=== PATIENT | male | born 1945 | race Caucasian/White ===

== ENCOUNTER 2019-04-25 23:46 | Inpatient (IN) | payer MEDICARE, MEDICAID ==
[2019-04-26 01:11] LABS: ANION GAP 16.2; CHLORIDE,CL 88 mmol/L (101-111); SODIUM,NA 129 mmol/L (135-145)
[2019-04-26] MEDS ORDERED: Sodium Chloride 0.9% 1,000 ML IV ONE (01:16)
[2019-04-26] MEDS ORDERED: Potassium Chloride 10 MEQ in Premix Bag 1 BAG IV ONE (01:18)
--- NOTE | 2019-04-26 01:40 | EDM.PDOC ---
ED HPI GENERAL MEDICAL PROBLEM - General Chief Complaint: Respiratory Problem Stated Complaint: AMBULANCE Time Seen by Provider: 04/26/19 00:30 Source of Information: Reports: Patient, EMS, RN History Limitations: Reports: No Limitations - History of Present Illness INITIAL COMMENTS - FREE TEXT/NARRATIVE: ED via [facility] from [facility] with report of diarrhea for past 2 days. No reported fever or chills, feeling weaker tonight. Ambulance state patient has been incontinent , was reported by facility staff to be one who refuses assistance when it is available. Patient denied any vomiting, , has not had appetite past couple of days, symptoms started after room mate with diarrhea, Hx COPD states breathing no worse than usual. Is moaning, states he always does that. On arrival patient putrid smell clothing soiled from arms of shirts, stool all over hands , feces an front of pants and soaked through, large pools of foul liquid stool in under pickett, headache Pain Score (Numeric/FACES): 6 - Related Data Allergies Allergy/AdvReac Type Severity Reaction Status Date / Time No Known Allergies Allergy Verified 04/26/19 02:29 Home Meds: Home Meds Bimatoprost [LUMIGAN 0.01% Ophth Soln] 1 drop EYEBOTH DAILY 10/10/14 [History] Albuterol Sulfate [Albuterol Sulfate HFA] 1 puff INH 6XDAY PRN 11/27/14 [History ] predniSONE [predniSONE 5 MG/5 ML] 5 mg PO BIDMEALS 03/14/19 [History] Abiraterone Acetate [Zytiga] 1,000 mg PO DAILY 04/26/19 [History] Acetaminophen [Tylenol] 650 mg PO Q4HR PRN 04/26/19 [History] Albuterol [Proventil HFA] 2 puff INH QID PRN 04/26/19 [History] Aspirin [Ecotrin EC] 81 mg PO DAILY 04/26/19 [History] Bimatoprost [LUMIGAN 0.01% Ophth Soln] 2.5 ml EYEBOTH DAILY 04/26/19 [History] Brimonidine [Alphagan 0.2% Ophth Soln] 1 drop EYEBOTH BID 04/26/19 [History] Budesonide/Formoterol Fumarate [Symbicort 160-4.5 Mcg Inhaler] 2 puff INH BID [History] Budesonide/Formoterol Fumarate [Symbicort 160-4.5 Mcg Inhaler] 2 puff INH BID [History] Calcium Carb, Citrate/Vit D3 [Citracal + D ER] 2 tab PO DAILY 04/26/19 [History] Clopidogrel [Plavix] 75 mg PO DAILY 04/26/19 [History] Denosumab [Xgeva] 120 mg SUBCUT .[id number] 04/26/19 [History] Lifitegrast [Xiidra] 1 drop EYEBOTH BID 04/26/19 [History] Lisinopril [Zestril] 10 mg PO DAILY 04/26/19 [History] Lutein/Minerals/Vit A,C & E [I-Alexandra] 1 tab PO DAILY 04/26/19 [History] Magnesium Hydroxide [Milk of Magnesia] 30 ml PO DAILY PRN 04/26/19 [History] Naftifine HCl [Naftin] 1 applic TOP DAILY 04/26/19 [History] Tamsulosin HCl [Flomax] 0.4 mg PO DAILY 04/26/19 [History] Umeclidinium [place]lap [Incruse Ellipta*] 1 puff INH DAILY 04/26/19 [History] Umeclidinium [place]lap [Incruse Ellipta*] 1 puff INH DAILY 04/26/19 [History] Vit A/C/E AC/Znox/Cupric Oxide [Eye Vitamin-Minerals Tablet] 1 tab PO DAILY 07/11 [History] atorvaSTATin Calcium [Lipitor] 40 mg PO DAILY 04/26/19 [History] Past Medical History HEENT History: Reports: Hard of Hearing, Impaired Vision Cardiovascular History: Reports: Other (See Below) Other Cardiovascular History: ESSENTIAL HYPERTENSION. Silk Rodes Procedure on February 26. Respiratory History: Reports: COPD Other Gastrointestinal History: FOOD IMPACTION OF ESOPHAGUS Other Genitourinary History: URETHRAL STRICTURE Other Musculoskeletal History: DIASTASIS RECTI Other Psychiatric History: tobacco abuse, alcohol abuse Dermatologic History: Reports: Venous Stasis Dermatitis - Past Surgical History Other Male Surgeries/Procedures: Dilitation of urethra due to scar tissue. Social & Family History - Family History Family Medical History: Noncontributory - Tobacco Use Smoking Status *Q: Former Smoker Used Tobacco, but Quit: No - Caffeine Use Caffeine Use: Reports: Coffee, Soda - Recreational Drug Use Recreational Drug Use: No - Living Situation & Occupation Living situation: Reports: Single, Alone Occupation: Retired ED ROS GENERAL - Review of Systems Review Of Systems: Comprehensive ROS is negative, except as noted in HPI. ED EXAM, GENERAL - Physical Exam Exam: See Below Exam Limited By: No Limitations General Appearance: Alert, Mild Distress, Thin Eye Exam: Bilateral Eye: EOMI Ears: Normal External Exam Nose: Normal Inspection Throat/Mouth: Normal Inspection Head: Atraumatic, Normocephalic Respiratory/Chest: Decreased Breath Sounds, Wheezing, Prolonged Expiration Cardiovascular: Normal Peripheral Pulses, Regular Rate, Rhythm GI/Abdominal: Abnormal Bowel Sounds (hyperactive), Other (copious amount of liquid stool). No: Tender Extremities: Other (movements stiff) Neurological: Alert, Oriented Psychiatric: Flat Affect Skin Exam: Other (yoseph area bright red scalded appearance) Course - Vital Signs Last Recorded V/S: Last Vital Signs Temp 97.9 F 04/27/19 19:43 Pulse 101 H 04/27/19 19:43 Resp 20 04/27/19 19:43 BP 113/64 04/27/19 19:43 Pulse Ox 98 04/27/19 19:43 - Orders/Labs/Meds Orders: Medication Orders Acetaminophen (Tylenol) 650 mg PO Q4H PRN PRN Reason: Pain (Mild 1-3)/fever Last Admin: 04/28/19 00:31 Dose: 650 mg Admin: 04/27/19 19:46 Dose: 650 mg Admin: 04/27/19 03:58 Dose: 650 mg Admin: 04/26/19 18:15 Dose: 650 mg Albuterol/Ipratropium (Duoneb 3.0-0.5 Mg/3 Ml) 3 ml NEB Q4HRRT PRN PRN Reason: Shortness of Breath Aspirin (Halfprin) 81 mg PO DAILY COUNTS INCLUDE 234 BEDS AT THE [facility] Last Admin: 04/27/19 08:55 Dose: 81 mg Atorvastatin Calcium (Lipitor) 40 mg PO DAILY COUNTS INCLUDE 234 BEDS AT THE [facility] Last Admin: 04/27/19 08:55 Dose: 40 mg Clopidogrel Bisulfate (Plavix) 75 mg PO DAILY COUNTS INCLUDE 234 BEDS AT THE [facility] Last Admin: 04/27/19 08:55 Dose: 75 mg Heparin Sodium (Porcine) (Heparin Sodium) 5,000 units SUBCUT Q8HR COUNTS INCLUDE 234 BEDS AT THE [facility] Last Admin: 04/27/19 21:18 Dose: 5,000 units Admin: 04/27/19 14:53 Dose: 5,000 units Admin: 04/27/19 05:17 Dose: 5,000 units Admin: 04/26/19 22:02 Dose: 5,000 units Admin: 04/26/19 14:08 Dose: 5,000 units Admin: 04/26/19 06:15 Dose: 5,000 units Ceftriaxone Sodium 1 gm/ (Sodium Chloride) 50 mls @ 100 mls/hr IV Q24H COUNTS INCLUDE 234 BEDS AT THE [facility] Last Admin: 04/27/19 11:41 Dose: 100 mls/hr Admin: 04/26/19 11:38 Dose: 100 mls/hr Doxycycline Hyclate 100 mg/ (Sodium Chloride) 100 mls @ 100 mls/hr IV Q12HR COUNTS INCLUDE 234 BEDS AT THE [facility] Last Admin: 04/27/19 21:16 Dose: 100 mls/hr Admin: 04/27/19 08:39 Dose: 100 mls/hr Admin: 04/26/19 20:28 Dose: 100 mls/hr Admin: 04/26/19 12:41 Dose: 100 mls/hr Magnesium Hydroxide (Milk Of Magnesia) 30 ml PO DAILY PRN PRN Reason: Constipation Mometasone Furoate/Formoterol Fumar (Dulera 200-5 Mcg) 2 puff IH BIDRT COUNTS INCLUDE 234 BEDS AT THE [facility] Last Admin: 04/27/19 18:21 Dose: 2 puff Admin: 04/27/19 08:44 Dose: 2 puff Admin: 04/26/19 18:10 Dose: 2 puff Abiraterone [Zytiga] 250 Mg/ Tab Own Med 0 mg PO BEDTIME COUNTS INCLUDE 234 BEDS AT THE [facility] Last Admin: 04/27/19 21:16 Dose: 1,000 mg Bimatoprost [Lumigan ] 0.01% Ophth Own Med 1 drop EYEBOTH DAILY COUNTS INCLUDE 234 BEDS AT THE [facility] Last Admin: 04/27/19 08:47 Dose: 1 drop Brimonidine 0.2% (Ophth Own Med) 1 drop EYEBOTH BID COUNTS INCLUDE 234 BEDS AT THE [facility] Last Admin: 04/27/19 21:22 Dose: 1 drop Admin: 04/27/19 08:49 Dose: 1 drop Incruse Ellipta 62.5 (Mcg Inh *Own Med) 1 puff INH DAILY COUNTS INCLUDE 234 BEDS AT THE [facility] Last Admin: 04/27/19 08:53 Dose: 1 puff I-Alexandra Tabs Own (Med) 1 tab PO DAILY COUNTS INCLUDE 234 BEDS AT THE [facility] Last Admin: 04/27/19 08:52 Dose: 1 tab Nystatin (Nystatin Crm) 0 gm TOP BID COUNTS INCLUDE 234 BEDS AT THE [facility] Last Admin: 04/27/19 21:19 Dose: 1 applic Admin: 04/27/19 11:40 Dose: 1 applic Ondansetron HCl (Zofran) 4 mg IVPUSH Q6H PRN PRN Reason: Nausea/Vomiting Prednisolone (Orapred 15 Mg/5ml Soln) 5.1 mg PO BIDMEALS COUNTS INCLUDE 234 BEDS AT THE [facility] Last Admin: 04/27/19 18:20 Dose: 5.1 mg Admin: 04/27/19 08:45 Dose: 5.1 mg Tamsulosin HCl (Flomax) 0.4 mg PO DAILY COUNTS INCLUDE 234 BEDS AT THE [facility] Last Admin: 04/27/19 08:55 Dose: 0.4 mg Labs: Laboratory Tests 04/26/19 04/26/19 04/26/19 Range/Units 00:43 00:43 06:05 WBC 12.8 H 11.7 H (5.0-10.0) 10^3/uL RBC 3.63 L 3.35 L (4.6-6.2) 10^6/uL Hgb 12.2 L D 11.2 L (14.0-18.0) g/dL Hct 36.0 L 33.2 L (40.0-54.0) % MCV 99.2 99.1 (80-100) fL MCH 33.6 33.4 (27.0-34.0) pg MCHC 33.9 33.7 (33.0-35.0) g/dL Plt Count 202 179 (150-450) 10^3/uL Neut % (Auto) 81.5 H 83.5 H (42.2-75.2) % Lymph % (Auto) 12.4 L 10.2 L (20.5-50.1) % [place] % (Auto) 5.0 5.6 (2-8) % Eos % (Auto) 0.9 L 0.5 L (1.0-3.0) % Baso % (Auto) 0.2 0.2 (0.0-1.0) % Sodium 129 L (135-145) mmol/L Potassium 3.2 L (3.6-5.0) mmol/L Chloride 88 L (101-111) mmol/L Carbon Dioxide 28.0 (21.0-31.0) mmol/L Anion Gap 16.2 BUN 32 H (7-18) mg/dL Creatinine 0.9 (0.6-1.3) mg/dL Est Cr Clr Drug Dosing TNP Estimated GFR (MDRD) > 60 BUN/Creatinine Ratio 35.55 Glucose 128 H (74-105) mg/dL Calcium 7.1 L D (8.4-10.2) mg/dl Total Bilirubin 1.8 H (0.2-1.0) mg/dL AST 33 (10-42) IU/L ALT 23 (10-60) IU/L Alkaline Phosphatase 72 (42-121) IU/L Troponin I < 0.02 (0.00-0.02) ng/ml B-Natriuretic Peptide 30 (0-100) pg/ml Total Protein 6.8 (6.7-8.2) g/dl Albumin 3.2 (3.2-5.5) g/dl Globulin 3.6 Albumin/Globulin Ratio 0.89 Amylase 47 (28-100) U/L Lipase 21 L (22-51) U/L 04/26/19 Range/Units 06:05 WBC (5.0-10.0) 10^3/uL RBC (4.6-6.2) 10^6/uL Hgb (14.0-18.0) g/dL Hct (40.0-54.0) % MCV (80-100) fL MCH (27.0-34.0) pg MCHC (33.0-35.0) g/dL Plt Count (150-450) 10^3/uL Neut % (Auto) (42.2-75.2) % Lymph % (Auto) (20.5-50.1) % [place] % (Auto) (2-8) % Eos % (Auto) (1.0-3.0) % Baso % (Auto) (0.0-1.0) % Sodium 129 L (135-145) mmol/L Potassium 3.0 L (3.6-5.0) mmol/L Chloride 92 L (101-111) mmol/L Carbon Dioxide 27.0 (21.0-31.0) mmol/L Anion Gap 13.0 BUN 35 H (7-18) mg/dL Creatinine 0.8 (0.6-1.3) mg/dL Est Cr Clr Drug Dosing 90.20 Estimated GFR (MDRD) > 60 BUN/Creatinine Ratio Glucose 108 H (74-105) mg/dL Calcium 6.6 L (8.4-10.2) mg/dl Total Bilirubin (0.2-1.0) mg/dL AST (10-42) IU/L ALT (10-60) IU/L Alkaline Phosphatase (42-121) IU/L Troponin I (0.00-0.02) ng/ml B-Natriuretic Peptide (0-100) pg/ml Total Protein (6.7-8.2) g/dl Albumin (3.2-5.5) g/dl Globulin Albumin/Globulin Ratio Amylase (28-100) U/L Lipase (22-51) U/L Meds: Medications Generic Name Dose Route Start Last Admin Trade Name Freq PRN Reason Stop Dose Admin Acetaminophen 650 mg 04/26/19 01:56 04/28/19 00:31 Tylenol PO 650 mg Q4H PRN Administration Pain (Mild 1-3)/fever Albuterol/Ipratropium 3 ml 04/26/19 14:01 Duoneb 3.0-0.5 Mg/3 Ml NEB Q4HRRT PRN Shortness of Breath Aspirin 81 mg 04/27/19 09:00 04/27/19 08:55 Halfprin PO 81 mg DAILY TEMI Administration Atorvastatin Calcium 40 mg 04/27/19 09:00 04/27/19 08:55 Lipitor PO 40 mg DAILY TEMI Administration Clopidogrel Bisulfate 75 mg 04/27/19 09:00 04/27/19 08:55 Plavix PO 75 mg DAILY TEMI Administration Heparin Sodium (Porcine) 5,000 units 04/26/19 06:00 04/27/19 21:18 Heparin Sodium SUBCUT 5,000 units Q8HR TEMI Administration Ceftriaxone Sodium 1 gm/ 50 mls @ 100 mls/hr 04/26/19 11:00 04/27/19 11:41 Sodium Chloride IV 100 mls/hr Q24H TEMI Administration Doxycycline Hyclate 100 mg/ 100 mls @ 100 mls/hr 01/03/20 12:00 04/27/19 21: 16 Sodium Chloride IV 100 mls/hr Q12HR TEMI Administration Magnesium Hydroxide 30 ml 04/26/19 12:37 Milk Of Magnesia PO DAILY PRN Constipation Mometasone Furoate/Formoterol Fumar 2 puff 04/26/19 18:00 04/27/19 18:21 Dulera 200-5 Mcg IH 2 puff BIDRT TEMI Administration Abiraterone [Zytiga] 0 mg 04/27/19 21:00 04/27/19 21:16 250 Mg/ Tab Own PO 1,000 mg Med BEDTIME TEMI Administration Bimatoprost [Lumigan 1 drop 04/27/19 09:00 04/27/19 08:47 ] 0.01% Ophth Own EYEBOTH 1 drop Med DAILY TEMI Administration Brimonidine 0.2% 1 drop 04/27/19 09:00 04/27/19 21:22 Ophth Own Med EYEBOTH 1 drop BID TEMI Administration Incruse Ellipta 62.5 1 puff 04/27/19 09:00 04/27/19 08:53 Mcg Inh *Own Med INH 1 puff DAILY TEMI Administration I-Alexandra Tabs Own 1 tab 04/27/19 09:00 04/27/19 08:52 Med PO 1 tab DAILY TEMI Administration Nystatin 0 gm 04/27/19 11:15 04/27/19 21:19 Nystatin Crm TOP 1 applic BID TEMI Administration Ondansetron HCl 4 mg 04/26/19 01:56 Zofran IVPUSH Q6H PRN Nausea/Vomiting Prednisolone 5.1 mg 04/27/19 08:00 04/27/19 18:20 Orapred 15 Mg/5ml Soln PO 5.1 mg BIDMEALS TEMI Administration Tamsulosin HCl 0.4 mg 04/27/19 09:00 04/27/19 08:55 Flomax PO 0.4 mg DAILY TEMI Administration Discontinued Medications Generic Name Dose Route Start Last Admin Trade Name Freq PRN Reason Stop Dose Admin Sodium Chloride 1,000 mls @ 999 mls/hr 04/26/19 01:16 04/26/19 01:28 Normal Saline IV 04/26/19 02:16 999 mls/hr .BOLUS ONE Administration Potassium Chloride 10 meq/ 100 mls @ 100 mls/hr 04/26/19 01:18 04/26/19 01:33 Premix IV 04/26/19 02:17 100 mls/hr ONETIME ONE Administration Sodium Chloride 1,000 mls @ 125 mls/hr 04/26/19 02:00 04/26/19 09:41 Normal Saline IV 125 mls/hr ASDIRECTED TEMI Administration Levofloxacin/Dextrose 500 mg/ 100 mls @ 100 mls/hr 04/26/19 03:35 04/26/19 03 :42 Premix IV 04/26/19 04:34 100 mls/hr ONETIME ONE Administration Potassium Chloride/Sodium Chloride 1,000 mls @ 125 mls/hr 04/26/19 12:45 08/11 05:17 Normal Saline With 40 Meq Kcl IV 125 mls/hr ASDIRECTED TEMI Administration Potassium Chloride 20 meq 04/26/19 12:37 04/26/19 14:07 Klor-Con 10 PO 04/26/19 12:38 20 meq ONETIME ONE Administration - Re-Assessments/Exams Free Text/Narrative Re-Assessment/Exam: 04/26/19 01:58 Dr Phillips accepting patient for observation admission. 04/26/19 01:58 EMSS report family has some involvement with patient, Facility only basic cares. Patient at present state could benefit from higher level of care. Concern arises for vulnerable adult status due to state on arrival. Departure - Departure Time of Disposition: 01:34 Disposition: Refer to Observation Condition: Good Clinical Impression: Gastroenteritis, Hypokalemia, Hyponatremia - Discharge Information *PRESCRIPTION DRUG MONITORING PROGRAM REVIEWED*: No Sepsis Event Note - Evaluation Sepsis Screening Result: Possible Sepsis Risk - Focused Exam Date Exam was Performed: 04/28/19 Time Exam was Performed: 06:17
[2019-04-26] MEDS ORDERED: Ondansetron 4 MG/2 ML SDV IVPUSH PRN (01:56)
[2019-04-26] MEDS ORDERED: Sodium Chloride 0.9% 1,000 ML IV SCH (02:00)
[2019-04-26] MEDS ORDERED: Levofloxacin/Dextrose 5%-Water 500 MG in Premix Bag 1 BAG IV ONE (03:35)
[2019-04-26] MEDS: Heparin Sodium 5,000 Units/ML Vial SUBCUT SCH ×3 (06:15→22:02)
[2019-04-26 06:58] LABS: CHLORIDE,CL 92 mmol/L (101-111); SODIUM,NA 129 mmol/L (135-145)
[2019-04-26] MEDS: cefTRIAXone 1 GM in Sodium Chloride 0.9% 50 ML IV SCH (11:38)
--- NOTE | 2019-04-26 12:31 | PCM.HP ---
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 The patient resides at [facility]. For the past 3 days he has been having diarrhea. The diarrhea is said to be profuse to the point of the patient is not able to control it. Patient's dressings were covered with a excreta. He also was having associated nausea and vomiting. Did not have fever chills or rigors. Denied having abdominal pain. Patient presented to the emergency room and was weak. Was noted to be hyponatremic. Chest x-ray was obtained and it showed left lower lobe infiltrate suggestive of pneumonia. Does have occasional cough and feels short of breath. - Related Data Allergies/Adverse Reactions: Allergies Allergy/AdvReac Type Severity Reaction Status Date / Time No Known Allergies Allergy Verified 04/26/19 02:29 Home Medications: Home Meds Bimatoprost [LUMIGAN 0.01% Ophth Soln] 1 drop EYEBOTH DAILY 10/10/14 [History] Albuterol Sulfate [Albuterol Sulfate HFA] 1 puff INH 6XDAY PRN 11/27/14 [History ] predniSONE [predniSONE 5 MG/5 ML] 5 mg PO BIDMEALS 03/14/19 [History] Abiraterone Acetate [Zytiga] 1,000 mg PO DAILY 04/26/19 [History] Acetaminophen [Tylenol] 650 mg PO Q4HR PRN 04/26/19 [History] Albuterol [Proventil HFA] 2 puff INH QID PRN 04/26/19 [History] Aspirin [Ecotrin EC] 81 mg PO DAILY 04/26/19 [History] Brimonidine [Alphagan 0.2% Ophth Soln] 1 drop EYEBOTH BID 04/26/19 [History] Budesonide/Formoterol Fumarate [Symbicort 160-4.5 Mcg Inhaler] 2 puff INH BID [History] Calcium Carb, Citrate/Vit D3 [Citracal + D ER] 2 tab PO DAILY 04/26/19 [History] Clopidogrel [Plavix] 75 mg PO DAILY 04/26/19 [History] Denosumab [Xgeva] 120 mg SUBCUT .[id number] 04/26/19 [History] Lifitegrast [Xiidra] 1 drop EYEBOTH BID 04/26/19 [History] Lisinopril [Zestril] 10 mg PO DAILY 04/26/19 [History] Magnesium Hydroxide [Milk of Magnesia] 30 ml PO DAILY PRN 04/26/19 [History] Naftifine HCl [Naftin] 1 applic TOP DAILY 04/26/19 [History] Tamsulosin HCl [Flomax] 0.4 mg PO DAILY 04/26/19 [History] Umeclidinium [place] [Incruse Ellipta*] 1 puff INH DAILY 04/26/19 [History] Vit A/C/E AC/Znox/Cupric Oxide [Eye Vitamin-Minerals Tablet] 1 tab PO DAILY 07/11 [History] atorvaSTATin Calcium [Lipitor] 40 mg PO DAILY 04/26/19 [History] Past Medical History HEENT History: Reports: Hard of Hearing, Impaired Vision, Macular Degeneration Cardiovascular History: Reports: Other (See Below) Other Cardiovascular History: ESSENTIAL HYPERTENSION. Silk Rodes Procedure on February 26. Respiratory History: Reports: COPD Other Gastrointestinal History: FOOD IMPACTION OF ESOPHAGUS Other Genitourinary History: URETHRAL STRICTURE Other Musculoskeletal History: DIASTASIS RECTI Other Psychiatric History: tobacco abuse, alcohol abuse Dermatologic History: Reports: Venous Stasis Dermatitis - Past Surgical History Other HEENT Surgeries/Procedures: blind in left eye Other Male Surgeries/Procedures: Dilitation of urethra due to scar tissue. Social & Family History - Family History Family Medical History: Noncontributory - Tobacco Use Smoking Status *Q: Former Smoker Years of Tobacco use: 60 Packs/Tins Daily: 2 Used Tobacco, but Quit: Yes Month/Year Tobacco Last Used: October 06, 1999 Second Hand Smoke Exposure: No - Caffeine Use Caffeine Use: Reports: None - Recreational Drug Use Recreational Drug Use: No - Living Situation & Occupation Living situation: Reports: Single, Alone Occupation: Retired H&P Review of Systems - Review of Systems: Review Of Systems: See Below General: Reports: Chills, Malaise, Weakness HEENT: Reports: Sinus Congestion Pulmonary: Reports: Shortness of Breath, Cough Cardiovascular: Reports: No Symptoms Gastrointestinal: Reports: Diarrhea, Nausea, Vomiting Musculoskeletal: Reports: No Symptoms Skin: Reports: No Symptoms Psychiatric: Reports: No Symptoms Neurological: Reports: No Symptoms Exam - Exam Exam: See Below - Vital Signs Vital Signs: Last Vital Signs Temp 36.9 C 04/26/19 11:46 Pulse 96 04/26/19 11:46 Resp 20 04/26/19 11:46 BP 106/44 L 04/26/19 11:46 Pulse Ox 98 04/26/19 11:46 Weight: 87.543 kg - Exam Quality Assessment: Supplemental Oxygen General: Alert, Oriented Neck: Supple, Trachea Midline, 2 Lungs: Decreased Breath Sounds GI/Abdominal Exam: Normal Bowel Sounds, Soft, Non-Tender, No Organomegaly, No Distention, No Abnormal Bruit, No Mass, Pelvis Stable Extremities: Normal Inspection, Non-Tender Skin: Dry - Patient Data Lab Results Last 24 hrs: Laboratory Results - last 24 hr 04/26/19 04/26/19 04/26/19 Range/Units 00:43 00:43 06:05 WBC 12.8 H 11.7 H (5.0-10.0) 10^3/uL RBC 3.63 L 3.35 L (4.6-6.2) 10^6/uL Hgb 12.2 L D 11.2 L (14.0-18.0) g/dL Hct 36.0 L 33.2 L (40.0-54.0) % MCV 99.2 99.1 (80-100) fL MCH 33.6 33.4 (27.0-34.0) pg MCHC 33.9 33.7 (33.0-35.0) g/dL Plt Count 202 179 (150-450) 10^3/uL Neut % (Auto) 81.5 H 83.5 H (42.2-75.2) % Lymph % (Auto) 12.4 L 10.2 L (20.5-50.1) % [place] % (Auto) 5.0 5.6 (2-8) % Eos % (Auto) 0.9 L 0.5 L (1.0-3.0) % Baso % (Auto) 0.2 0.2 (0.0-1.0) % Sodium 129 L (135-145) mmol/L Potassium 3.2 L (3.6-5.0) mmol/L Chloride 88 L (101-111) mmol/L Carbon Dioxide 28.0 (21.0-31.0) mmol/L Anion Gap 16.2 BUN 32 H (7-18) mg/dL Creatinine 0.9 (0.6-1.3) mg/dL Est Cr Clr Drug Dosing TNP Estimated GFR (MDRD) > 60 BUN/Creatinine Ratio 35.55 Glucose 128 H (74-105) mg/dL Calcium 7.1 L D (8.4-10.2) mg/dl Total Bilirubin 1.8 H (0.2-1.0) mg/dL AST 33 (10-42) IU/L ALT 23 (10-60) IU/L Alkaline Phosphatase 72 (42-121) IU/L Troponin I < 0.02 (0.00-0.02) ng/ml B-Natriuretic Peptide 30 (0-100) pg/ml Total Protein 6.8 (6.7-8.2) g/dl Albumin 3.2 (3.2-5.5) g/dl Globulin 3.6 Albumin/Globulin Ratio 0.89 Amylase 47 (28-100) U/L Lipase 21 L (22-51) U/L 04/26/19 Range/Units 06:05 WBC (5.0-10.0) 10^3/uL RBC (4.6-6.2) 10^6/uL Hgb (14.0-18.0) g/dL Hct (40.0-54.0) % MCV (80-100) fL MCH (27.0-34.0) pg MCHC (33.0-35.0) g/dL Plt Count (150-450) 10^3/uL Neut % (Auto) (42.2-75.2) % Lymph % (Auto) (20.5-50.1) % [place] % (Auto) (2-8) % Eos % (Auto) (1.0-3.0) % Baso % (Auto) (0.0-1.0) % Sodium 129 L (135-145) mmol/L Potassium 3.0 L (3.6-5.0) mmol/L Chloride 92 L (101-111) mmol/L Carbon Dioxide 27.0 (21.0-31.0) mmol/L Anion Gap 13.0 BUN 35 H (7-18) mg/dL Creatinine 0.8 (0.6-1.3) mg/dL Est Cr Clr Drug Dosing 90.20 Estimated GFR (MDRD) > 60 BUN/Creatinine Ratio Glucose 108 H (74-105) mg/dL Calcium 6.6 L (8.4-10.2) mg/dl Total Bilirubin (0.2-1.0) mg/dL AST (10-42) IU/L ALT (10-60) IU/L Alkaline Phosphatase (42-121) IU/L Troponin I (0.00-0.02) ng/ml B-Natriuretic Peptide (0-100) pg/ml Total Protein (6.7-8.2) g/dl Albumin (3.2-5.5) g/dl Globulin Albumin/Globulin Ratio Amylase (28-100) U/L Lipase (22-51) U/L Result Diagrams: 04/26/19 06:05 04/26/19 06:05 Alvaro Results Last 24 hrs: Microbiology 04/26/19 00:31 Stool Occult Blood (ALVARO) - Final Stool / Feces Problem List Initiated/Reviewed/Updated: Yes Orders Last 24hrs: Active Orders 24 hr Category Date Time Status Admission Diagnosis [ADT] Urgent ADT 04/26/19 01:53 Ordered Patient Status [ADT] Routine ADT 04/26/19 11:55 Active Intake and Output [RC] QSHIFT Care 04/26/19 01:58 Active Oxygen Therapy [RC] PRN Care 04/26/19 01:56 Active Up ad Minnie [RC] ASDIRECTED Care 04/26/19 01:56 Active VTE/DVT Education [RC] PER UNIT ROUTINE Care 04/26/19 01:56 Active Vital Signs [RC] 00,04,08,12,16,20 Care 04/26/19 01:56 Active OT Evaluation and Treatment [CONS] Routine Cons 04/26/19 11:38 Active PT Evaluation and Treatment [CONS] Routine Cons 04/26/19 11:38 Active Regular Diet [DIET] Diet 04/26/19 Breakfast Active CLOSTRIDIUM DIFFICILE TOX RFLX [MREF] Stat Lab 04/26/19 00:30 Received CULTURE BLOOD [BC] Stat Lab 04/26/19 00:43 Received CULTURE SPUTUM + SMEAR [RM] Routine Lab 04/26/19 12:23 Ordered CULTURE STOOL [RM] Stat Lab 04/26/19 00:30 Received Acetaminophen [Tylenol] Med 04/26/19 01:56 Active 650 mg PO Q4H PRN Doxycycline [Vibramycin] 100 mg Med 04/26/19 12:00 Active Sodium Chloride 0.9% [Normal Saline] 100 ml IV Q12HR Heparin Sodium Med 04/26/19 06:00 Active 5,000 units SUBCUT Q8HR Ondansetron [Zofran] Med 04/26/19 01:56 Active 4 mg IVPUSH Q6H PRN Sodium Chloride 0.9% [Normal Saline] 1,000 ml Med 04/26/19 02:00 Active IV ASDIRECTED cefTRIAXone [Rocephin] 1 gm Med 04/26/19 11:00 Active Sodium Chloride 0.9% [Normal Saline] 50 ml IV Q24H Isolation [COMM] Stat Oth 04/26/19 01:13 Ordered Resuscitation Status Routine Resus Stat 04/26/19 01:56 Ordered Medication Orders Acetaminophen (Tylenol) 650 mg PO Q4H PRN PRN Reason: Pain (Mild 1-3)/fever Heparin Sodium (Porcine) (Heparin Sodium) 5,000 units SUBCUT Q8HR [facility] Last Admin: 04/26/19 06:15 Dose: 5,000 units Sodium Chloride (Normal Saline) 1,000 mls @ 125 mls/hr IV ASDIRECTED [facility] Last Admin: 04/26/19 09:41 Dose: 125 mls/hr Ceftriaxone Sodium 1 gm/ (Sodium Chloride) 50 mls @ 100 mls/hr IV Q24H [facility] Last Admin: 04/26/19 11:38 Dose: 100 mls/hr Doxycycline Hyclate 100 mg/ (Sodium Chloride) 100 mls @ 100 mls/hr IV Q12HR [facility] Ondansetron HCl (Zofran) 4 mg IVPUSH Q6H PRN PRN Reason: Nausea/Vomiting Assessment/Plan Comment:: #.Probable acute gastroenteritis The patient is having profuse nausea vomiting and diarrhea Diarrhea has been so profuse that the patient's dressings were covered with excreta #. Probable left lower lobe pneumonia Patient admits to having shortness of breath Only has mild cough Chest x-ray showed left lower lobe infiltrate #. Metastatic prostate cancer The patient follows with Dr. Roman #. COPD He is an active smoker Does have diminished air entry bilaterally #. Hypertension Monitor vital signs #. Tobacco use disorder Counseling provided #. Peripheral artery disease Patient follows with vascular #. Benign prostatic hypertrophy Place patient on tamsulosin #. T artery stenosis Patient has had previous left, carotid artery stent placement Plan: Admit patient to medical floor Send sputum for Gram stain and cultures Empiric antibiotics with intravenous ceftriaxone Intravenous doxycycline Intravenous hydration because of diarrhea We'll start patient on Imodium tablet Provide nicotine patch when necessary Nebulized bronchodilators.
[2019-04-26] MEDS ORDERED: Magnesium Hydroxide 400 MG/5 ML Susp 30 ML Cup PO PRN (12:37)
[2019-04-26] MEDS ORDERED: Albuterol 6.7 GM Inhaler INH PRN (12:37)
[2019-04-26] MEDS ORDERED: Potassium Chloride 10 MEQ Tab.ER PO ONE (12:37)
[2019-04-26] MEDS: Doxycycline 100 MG in Sodium Chloride 0.9% 100 ML IV SCH ×2 (12:41→20:28)
[2019-04-26] MEDS: Formoterol/Mometasone 200-5 MCG 8.8 GM Inhaler IH SCH (18:10)
[2019-04-26] MEDS: Acetaminophen 325 MG Tab PO PRN (18:15)
[2019-04-26] MEDS: Sodium Chloride 0.9% with KCl 1,000 ML IV SCH (19:27)
[2019-04-26] MEDS ORDERED: Non-Formulary Medication 1 Each (Budesonide/Formoterol Fumarate 2 PUFF) INH SCH (21:00)
[2019-04-27] MEDS: Acetaminophen 325 MG Tab PO PRN ×2 (03:58→19:46)
[2019-04-27] MEDS: Sodium Chloride 0.9% with KCl 1,000 ML IV SCH (05:17)
[2019-04-27] MEDS: Heparin Sodium 5,000 Units/ML Vial SUBCUT SCH ×3 (05:17→21:18)
[2019-04-27 07:05] LABS: ANION GAP 13.8; CHLORIDE,CL 101 mmol/L (101-111); SODIUM,NA 134 mmol/L (135-145)
[2019-04-27] MEDS: Doxycycline 100 MG in Sodium Chloride 0.9% 100 ML IV SCH ×2 (08:39→21:16)
[2019-04-27] MEDS: Formoterol/Mometasone 200-5 MCG 8.8 GM Inhaler IH SCH ×2 (08:44→18:21)
[2019-04-27] MEDS: prednisoLONE Soln 15 MG/5 ML UD Cup PO SCH ×2 (08:45→18:20)
[2019-04-27] MEDS: BIMATOPROST 0.01% EYEBOTH SCH (08:47)
[2019-04-27] MEDS: Brimonidine 0.2% Ophth **OWN MED EYEBOTH SCH ×2 (08:49→21:22)
[2019-04-27] MEDS: I VITE PO SCH (08:52)
[2019-04-27] MEDS: INCRUSE ELLIPTA 62.5 MCG INH SCH (08:53)
[2019-04-27] MEDS: Clopidogrel 75 MG Tab PO SCH (08:55)
[2019-04-27] MEDS: Tamsulosin 0.4 MG Cap.ER PO SCH (08:55)
[2019-04-27] MEDS: Aspirin 81 MG Tab.EC PO SCH (08:55)
[2019-04-27] MEDS: atorvaSTATin 20 MG Tab PO SCH (08:55)
--- NOTE | 2019-04-27 10:18 | PCM.PN ---
- General Info Date of Service: 04/27/19 Subjective Update: Patient was admitted with gastroenteritis and left lower lobe pneumonia Today, Offers no new complaints Diarrhea has improved Occasional cough. Sometimes productive. Continues to have shortness of breath. Still needing supplemental oxygen - Review of Systems General: Reports: Weakness, Fatigue Pulmonary: Reports: Shortness of Breath, Cough Cardiovascular: Reports: No Symptoms Gastrointestinal: Reports: No Symptoms Skin: Reports: No Symptoms - Patient Data Vitals - Most Recent: Last Vital Signs Temp 37.0 C 04/27/19 07:59 Pulse 86 04/27/19 07:59 Resp 20 04/27/19 07:59 BP 118/47 L 04/27/19 07:59 Pulse Ox 98 04/27/19 07:59 Weight - Most Recent: 87.543 kg I&O - Last 24 Hours: Intake & Output 04/26/19 04/27/19 04/27/19 22:59 06:59 14:59 Output Total 200 Balance -200 Lab Results Last 24 Hours: Laboratory Results - last 24 hr 04/27/19 Range/Units 05:40 Sodium 134 L (135-145) mmol/L Potassium 3.8 (3.6-5.0) mmol/L Chloride 101 (101-111) mmol/L Carbon Dioxide 23.0 (21.0-31.0) mmol/L Anion Gap 13.8 BUN 31 H (7-18) mg/dL Creatinine 0.5 L (0.6-1.3) mg/dL Est Cr Clr Drug Dosing 144.33 mL/min Estimated GFR (MDRD) > 60 Glucose 96 (74-105) mg/dL Calcium 6.3 L (8.4-10.2) mg/dl Alvaro Results Last 24 Hours: Microbiology 04/26/19 00:30 Clostridioides difficile (PCR) - Final Stool / Feces 04/26/19 00:30 Stool Culture - Preliminary Stool / Feces NORMAL ENTERIC DELLA 1 DAY 04/26/19 00:43 Aerobic Blood Culture - Preliminary Blood NO GROWTH AFTER 1 DAY Anaerobic Blood Culture - Preliminary NO GROWTH AFTER 1 DAY Med Orders - Current: Current Medications Acetaminophen (Tylenol) 650 mg PO Q4H PRN PRN Reason: Pain (Mild 1-3)/fever Last Admin: 04/27/19 03:58 Dose: 650 mg Albuterol/Ipratropium (Duoneb 3.0-0.5 Mg/3 Ml) 3 ml NEB Q4HRRT PRN PRN Reason: Shortness of Breath Aspirin (Halfprin) 81 mg PO DAILY [facility] Last Admin: 04/27/19 08:55 Dose: 81 mg Atorvastatin Calcium (Lipitor) 40 mg PO DAILY [facility] Last Admin: 04/27/19 08:55 Dose: 40 mg Clopidogrel Bisulfate (Plavix) 75 mg PO DAILY [facility] Last Admin: 04/27/19 08:55 Dose: 75 mg Heparin Sodium (Porcine) (Heparin Sodium) 5,000 units SUBCUT Q8HR [facility] Last Admin: 04/27/19 05:17 Dose: 5,000 units Ceftriaxone Sodium 1 gm/ (Sodium Chloride) 50 mls @ 100 mls/hr IV Q24H [facility] Last Admin: 04/26/19 11:38 Dose: 100 mls/hr Doxycycline Hyclate 100 mg/ (Sodium Chloride) 100 mls @ 100 mls/hr IV Q12HR [facility] Last Admin: 04/27/19 08:39 Dose: 100 mls/hr Magnesium Hydroxide (Milk Of Magnesia) 30 ml PO DAILY PRN PRN Reason: Constipation Mometasone Furoate/Formoterol Fumar (Dulera 200-5 Mcg) 2 puff IH BIDRT [facility] Last Admin: 04/27/19 08:44 Dose: 2 puff Abiraterone [Zytiga] 250 Mg/ Tab Own Med 0 mg PO BEDTIME [facility] Bimatoprost [Lumigan ] 0.01% Ophth Own Med 1 drop EYEBOTH DAILY [facility] Last Admin: 04/27/19 08:47 Dose: 1 drop Brimonidine 0.2% (Ophth Own Med) 1 drop EYEBOTH BID [facility] Last Admin: 04/27/19 08:49 Dose: 1 drop Incruse Ellipta 62.5 (Mcg Inh *Own Med) 1 puff INH DAILY [facility] Last Admin: 04/27/19 08:53 Dose: 1 puff I-Alexandra Tabs Own (Med) 1 tab PO DAILY [facility] Last Admin: 04/27/19 08:52 Dose: 1 tab Ondansetron HCl (Zofran) 4 mg IVPUSH Q6H PRN PRN Reason: Nausea/Vomiting Prednisolone (Orapred 15 Mg/5ml Soln) 5.1 mg PO BIDMEALS [facility] Last Admin: 04/27/19 08:45 Dose: 5.1 mg Tamsulosin HCl (Flomax) 0.4 mg PO DAILY [facility] Last Admin: 04/27/19 08:55 Dose: 0.4 mg Discontinued Medications Sodium Chloride (Normal Saline) 1,000 mls @ 999 mls/hr IV .BOLUS ONE Stop: 04/26/19 02:16 Last Admin: 04/26/19 01:28 Dose: 999 mls/hr Potassium Chloride 10 meq/ (Premix) 100 mls @ 100 mls/hr IV ONETIME ONE Stop: 04/26/19 02:17 Last Admin: 04/26/19 01:33 Dose: 100 mls/hr Sodium Chloride (Normal Saline) 1,000 mls @ 125 mls/hr IV ASDIRECTED [facility] Last Admin: 04/26/19 09:41 Dose: 125 mls/hr Levofloxacin/Dextrose 500 mg/ (Premix) 100 mls @ 100 mls/hr IV ONETIME ONE Stop: 04/26/19 04:34 Last Admin: 04/26/19 03:42 Dose: 100 mls/hr Potassium Chloride/Sodium Chloride (Normal Saline With 40 Meq Kcl) 1,000 mls @ 125 mls/hr IV ASDIRECTED [facility] Last Admin: 04/27/19 05:17 Dose: 125 mls/hr Potassium Chloride (Klor-Con 10) 20 meq PO ONETIME ONE Stop: 04/26/19 12:38 Last Admin: 04/26/19 14:07 Dose: 20 meq - Exam General: Alert, Oriented HEENT: Pupils Equal, Pupils Reactive, EOMI, Mucous Membr. Moist/[place] Neck: Supple Lungs: Clear to Auscultation, Normal Respiratory Effort Cardiovascular: Regular Rate, Regular Rhythm GI/Abdominal Exam: Normal Bowel Sounds, Soft, Non-Tender, No Organomegaly, No Distention, No Abnormal Bruit, No Mass, Pelvis Stable Extremities: Normal Inspection, Normal Range of Motion, Non-Tender, No Pedal Edema, Normal Capillary Refill Sepsis Event Note - Evaluation Sepsis Screening Result: No Definite Risk - Focused Exam Vital Signs: Vital Signs Temp Pulse Resp BP Pulse Ox Pulse Ox 04/27/19 07:59 37.0 C 86 20 118/47 L 98 04/27/19 04:00 94 L 04/26/19 23:36 36.6 C 100 17 112/52 L 96 Date Exam was Performed: 04/27/19 Time Exam was Performed: 10:13 - Problem List Review Problem List Initiated/Reviewed/Updated: Yes - My Orders Last 24 Hours: My Active Orders 04/26/19 11:00 cefTRIAXone [Rocephin] 1 gm Sodium Chloride 0.9% [Normal Saline] 50 ml IV Q24H 04/26/19 11:38 OT Evaluation and Treatment [CONS] Routine PT Evaluation and Treatment [CONS] Routine 04/26/19 11:55 Patient Status [ADT] Routine 04/26/19 12:00 Doxycycline [Vibramycin] 100 mg Sodium Chloride 0.9% [Normal Saline] 100 ml IV Q12HR 04/26/19 12:37 Magnesium Hydroxide [Milk of Magnesia] 30 ml PO DAILY PRN 04/26/19 14:01 RT Aerosol Therapy [RC] ASDIRECTED Albuterol/Ipratropium [DuoNeb 3.0-0.5 MG/3 ML] 3 ml NEB Q4HRRT PRN 04/26/19 18:00 Mometasone/Formoterol [Dulera 200-5 MCG] 2 puff IH BIDRT 04/27/19 08:00 prednisoLONE [OraPred 15 MG/5ML Soln] 5.1 mg PO BIDMEALS 04/27/19 09:00 Aspirin [Halfprin] 81 mg PO DAILY Bimatoprost [LUMIGAN 0.01% Ophth Soln] 1 drop EYEBOTH DAILY Brimonidine [Alphagan 0.2% Ophth Soln] 1 drop EYEBOTH BID Clopidogrel [Plavix] 75 mg PO DAILY Tamsulosin [Flomax] 0.4 mg PO DAILY Umeclidinium [place] [Incruse Ellipta*] 1 puff INH DAILY Vit A/C/E AC/Znox/Cupric Oxide [Eye Vitamin-Minerals Tablet] 1 tab PO DAILY atorvaSTATin [Lipitor] 40 mg PO DAILY 04/27/19 09:16 CULTURE SPUTUM + SMEAR [RM] Routine 04/27/19 21:00 Abiraterone Acetate [Zytiga] 0 mg PO BEDTIME 04/28/19 06:00 HEPATIC FUNCTION PANEL,HFP [CHEM] Routine - Plan Plan:: #.Probable acute gastroenteritis The patient was having profuse nausea vomiting and diarrhea Improved #. Probable left lower lobe pneumonia Patient admits to having shortness of breath Only has mild cough Chest x-ray showed left lower lobe infiltrate #. Metastatic prostate cancer The patient follows with Dr. Roman #. COPD He is an active smoker Has been having shortness of breath #. Hypertension Reasonable control #. Tobacco use disorder Counseling provided #. Peripheral artery disease Patient follows with vascular #. Benign prostatic hypertrophy Place patient on tamsulosin #. Carotid artery stenosis Patient has had previous left, carotid artery stent placement Plan: Patient is to having some shortness of breath. He is on supplemental oxygen We'll try to wean this off as tolerated Stool for C. difficile toxin came back negative Discontinue isolation discontinue intravenous fluids Send sample for brain natruretic peptide Physical and occupational therapy Send sample for repeat liver function test Obtain complete blood count and basic metabolic panel
[2019-04-27] MEDS: Nystatin Crm 15 GM Tube TOP SCH ×2 (11:40→21:19)
[2019-04-27] MEDS: cefTRIAXone 1 GM in Sodium Chloride 0.9% 50 ML IV SCH (11:41)
[2019-04-27] MEDS: ABIRATERONE PO SCH (21:16)
[2019-04-28] MEDS: Acetaminophen 325 MG Tab PO PRN ×3 (00:31→20:48)
[2019-04-28] MEDS: Heparin Sodium 5,000 Units/ML Vial SUBCUT SCH (06:37)
[2019-04-28] MEDS ORDERED: Calcium Gluconate 10% 1 GM/10 ML SDV IVPUSH ONE (08:20)
[2019-04-28] MEDS ORDERED: Calcium Gluconate 2 GM in Sodium Chloride 0.9% 100 ML IV ONE (08:45)
--- NOTE | 2019-04-28 08:55 | PCM.PN ---
- General Info Date of Service: 04/28/19 - Review of Systems General: Reports: Weakness, Fatigue Pulmonary: Reports: No Symptoms, Shortness of Breath, Cough, Sputum Cardiovascular: Reports: No Symptoms Gastrointestinal: Reports: No Symptoms - Patient Data Vitals - Most Recent: Last Vital Signs Temp 36.2 C 04/28/19 08:08 Pulse 91 04/28/19 08:08 Resp 20 04/28/19 08:08 BP 139/56 L 04/28/19 08:08 Pulse Ox 96 04/28/19 08:08 Weight - Most Recent: 87.543 kg I&O - Last 24 Hours: Intake & Output 04/27/19 04/28/19 04/28/19 22:59 06:59 14:59 Intake Total 510 567 Balance 510 567 Lab Results Last 24 Hours: Laboratory Results - last 24 hr 04/28/19 Range/Units 06:15 Total Bilirubin 0.8 (0.2-1.0) mg/dL Direct Bilirubin 0.4 H (0.0-0.2) mg/dL Indirect Bilirubin 0.4 AST 41 (10-42) IU/L ALT 31 (10-60) IU/L Alkaline Phosphatase 57 (42-121) IU/L Total Protein 6.0 L (6.7-8.2) g/dl Albumin 2.7 L (3.2-5.5) g/dl Globulin 3.3 Albumin/Globulin Ratio 0.82 Alvaro Results Last 24 Hours: Microbiology 04/26/19 00:30 Clostridioides difficile (PCR) - Final Stool / Feces Clostridioides difficile Toxin Assay - Final 04/26/19 00:30 Stool Culture - Preliminary Stool / Feces NORMAL ENTERIC DELLA 2 DAYS 04/26/19 00:43 Aerobic Blood Culture - Preliminary Blood NO GROWTH AFTER 2 DAYS Anaerobic Blood Culture - Preliminary NO GROWTH AFTER 2 DAYS 04/27/19 09:16 Gram Stain - Final Sputum - Expectorated Med Orders - Current: Current Medications Acetaminophen (Tylenol) 650 mg PO Q4H PRN PRN Reason: Pain (Mild 1-3)/fever Last Admin: 04/28/19 00:31 Dose: 650 mg Albuterol/Ipratropium (Duoneb 3.0-0.5 Mg/3 Ml) 3 ml NEB Q4HRRT PRN PRN Reason: Shortness of Breath Aspirin (Halfprin) 81 mg PO DAILY [facility] Last Admin: 04/27/19 08:55 Dose: 81 mg Atorvastatin Calcium (Lipitor) 40 mg PO DAILY [facility] Last Admin: 04/27/19 08:55 Dose: 40 mg Clopidogrel Bisulfate (Plavix) 75 mg PO DAILY [facility] Last Admin: 04/27/19 08:55 Dose: 75 mg Ceftriaxone Sodium 1 gm/ (Sodium Chloride) 50 mls @ 100 mls/hr IV Q24H [facility] Last Admin: 04/27/19 11:41 Dose: 100 mls/hr Doxycycline Hyclate 100 mg/ (Sodium Chloride) 100 mls @ 100 mls/hr IV Q12HR [facility] Last Admin: 04/27/19 21:16 Dose: 100 mls/hr Calcium Gluconate 2 gm/ Sodium (Chloride) 120 mls @ 60 mls/hr IV ONETIME ONE Stop: 04/28/19 10:44 Magnesium Hydroxide (Milk Of Magnesia) 30 ml PO DAILY PRN PRN Reason: Constipation Mometasone Furoate/Formoterol Fumar (Dulera 200-5 Mcg) 2 puff IH BIDRT [facility] Last Admin: 04/27/19 18:21 Dose: 2 puff Abiraterone [Zytiga] 250 Mg/ Tab Own Med 0 mg PO BEDTIME [facility] Last Admin: 04/27/19 21:16 Dose: 1,000 mg Bimatoprost [Lumigan ] 0.01% Ophth Own Med 1 drop EYEBOTH DAILY [facility] Last Admin: 04/27/19 08:47 Dose: 1 drop Brimonidine 0.2% (Ophth Own Med) 1 drop EYEBOTH BID [facility] Last Admin: 04/27/19 21:22 Dose: 1 drop Incruse Ellipta 62.5 (Mcg Inh *Own Med) 1 puff INH DAILY [facility] Last Admin: 04/27/19 08:53 Dose: 1 puff I-Alexandra Tabs Own (Med) 1 tab PO DAILY [facility] Last Admin: 04/27/19 08:52 Dose: 1 tab Nystatin (Nystatin Crm) 0 gm TOP BID [facility] Last Admin: 04/27/19 21:19 Dose: 1 applic Ondansetron HCl (Zofran) 4 mg IVPUSH Q6H PRN PRN Reason: Nausea/Vomiting Prednisolone (Orapred 15 Mg/5ml Soln) 5.1 mg PO BIDMEALS [facility] Last Admin: 04/27/19 18:20 Dose: 5.1 mg Tamsulosin HCl (Flomax) 0.4 mg PO DAILY [facility] Last Admin: 04/27/19 08:55 Dose: 0.4 mg Discontinued Medications Calcium Gluconate (Calcium Gluconate) 2 gm IVPUSH ONETIME ONE Stop: 04/28/19 08:21 Heparin Sodium (Porcine) (Heparin Sodium) 5,000 units SUBCUT Q8HR [facility] Last Admin: 04/28/19 06:37 Dose: Not Given Sodium Chloride (Normal Saline) 1,000 mls @ 999 mls/hr IV .BOLUS ONE Stop: 04/26/19 02:16 Last Admin: 04/26/19 01:28 Dose: 999 mls/hr Potassium Chloride 10 meq/ (Premix) 100 mls @ 100 mls/hr IV ONETIME ONE Stop: 04/26/19 02:17 Last Admin: 04/26/19 01:33 Dose: 100 mls/hr Sodium Chloride (Normal Saline) 1,000 mls @ 125 mls/hr IV ASDIRECTED [facility] Last Admin: 04/26/19 09:41 Dose: 125 mls/hr Levofloxacin/Dextrose 500 mg/ (Premix) 100 mls @ 100 mls/hr IV ONETIME ONE Stop: 04/26/19 04:34 Last Admin: 04/26/19 03:42 Dose: 100 mls/hr Potassium Chloride/Sodium Chloride (Normal Saline With 40 Meq Kcl) 1,000 [facility]ls [facility] Admin: 04/27/19 05:17 Dose: 125 mls/hr Potassium Chloride (Klor-Con 10) 20 meq PO ONETIME ONE Stop: 04/26/19 12:38 Last Admin: 04/26/19 14:07 Dose: 20 meq - Exam General: Alert, Oriented, Cooperative, No Acute Distress Neck: Supple, Trachea Midline Lungs: Decreased Breath Sounds, Rhonchi, Wheezing GI/Abdominal Exam: Normal Bowel Sounds, Soft, Non-Tender, No Organomegaly, No Distention, No Abnormal Bruit, No Mass, Pelvis Stable Back Exam: Normal Inspection, Full Range of Motion Skin: Warm, Dry Sepsis Event Note - Evaluation Sepsis Screening Result: Possible Sepsis Risk - Focused Exam Vital Signs: Vital Signs Temp Pulse Resp BP Pulse Ox Pulse Ox 04/28/19 08:08 36.2 C 91 20 139/56 L 96 04/28/19 04:00 97 Date Exam was Performed: 04/28/19 Time Exam was Performed: 08:51 - Problem List Review Problem List Initiated/Reviewed/Updated: Yes - My Orders Last 24 Hours: My Active Orders 04/27/19 08:00 prednisoLONE [OraPred 15 MG/5ML Soln] 5.1 mg PO BIDMEALS 04/27/19 09:00 Aspirin [Halfprin] 81 mg PO DAILY Bimatoprost [LUMIGAN 0.01% Ophth Soln] 1 drop EYEBOTH DAILY Brimonidine [Alphagan 0.2% Ophth Soln] 1 drop EYEBOTH BID Clopidogrel [Plavix] 75 mg PO DAILY Tamsulosin [Flomax] 0.4 mg PO DAILY Umeclidinium [place] [Incruse Ellipta*] 1 puff INH DAILY Vit A/C/E AC/Znox/Cupric Oxide [Eye Vitamin-Minerals Tablet] 1 tab PO DAILY atorvaSTATin [Lipitor] 40 mg PO DAILY 04/27/19 09:16 CULTURE SPUTUM + SMEAR [RM] Routine 04/27/19 11:15 Nystatin [Nystatin Crm] 0 gm TOP BID 04/27/19 21:00 Abiraterone Acetate [Zytiga] 0 mg PO BEDTIME 04/28/19 06:15 CALCIUM, IONIZED, SERUM [REF] Routine 04/28/19 08:20 CALCIUM, IONIZED, SERUM [REF] Routine 04/28/19 08:40 Flutter Valve Therapy [RT Chest Physiotherapy] [RC] ASDIRECTED 04/28/19 08:45 Calcium Gluconate 2 gm Sodium Chloride 0.9% [Normal Saline] 100 ml IV ONETIME 04/29/19 05:11 BASIC METABOLIC PANEL,BMP [CHEM] AM - Plan Plan:: #.Probable acute gastroenteritis The patient was having profuse nausea vomiting and diarrhea Improved #. Probable left lower lobe pneumonia Patient admits to having shortness of breath Only has mild cough Chest x-ray showed left lower lobe infiltrate #. Metastatic prostate cancer The patient follows with Dr. Roman #. COPD He is an active smoker Continues to have shortness of breath #. Hypertension Reasonable control #. Tobacco use disorder Counseling provided #. Peripheral artery disease Patient follows with vascular #. Benign prostatic hypertrophy Place patient on tamsulosin #. Carotid artery stenosis Patient has had previous left, carotid artery stent placement #. Hypocalcemia Likely due to hypoalbuminemia Plan: Obtain ionized calcium Intravenous calcium gluconate Sputum for Gram stain and cultures Incentive spirometry Try to wean off oxygen as tolerated Continue nebulization Obtain Repeat basic metabolic panel Provide flutter valve to help with sputum expectoration
[2019-04-28] MEDS: Doxycycline 100 MG in Sodium Chloride 0.9% 100 ML IV SCH ×2 (09:15→20:53)
[2019-04-28] MEDS: Formoterol/Mometasone 200-5 MCG 8.8 GM Inhaler IH SCH ×2 (09:25→17:38)
[2019-04-28] MEDS: atorvaSTATin 20 MG Tab PO SCH (09:25)
[2019-04-28] MEDS: Aspirin 81 MG Tab.EC PO SCH (09:26)
[2019-04-28] MEDS: Clopidogrel 75 MG Tab PO SCH (09:26)
[2019-04-28] MEDS: Tamsulosin 0.4 MG Cap.ER PO SCH (09:26)
[2019-04-28] MEDS: prednisoLONE Soln 15 MG/5 ML UD Cup PO SCH ×2 (09:28→17:39)
[2019-04-28] MEDS: Brimonidine 0.2% Ophth **OWN MED EYEBOTH SCH ×2 (09:33→20:53)
[2019-04-28] MEDS: BIMATOPROST 0.01% EYEBOTH SCH (09:33)
[2019-04-28] MEDS: Nystatin Crm 15 GM Tube TOP SCH ×2 (09:42→20:53)
[2019-04-28] MEDS: INCRUSE ELLIPTA 62.5 MCG INH SCH (11:52)
[2019-04-28] MEDS: I VITE PO SCH (11:53)
[2019-04-28] MEDS: cefTRIAXone 1 GM in Sodium Chloride 0.9% 50 ML IV SCH (13:17)
[2019-04-28] MEDS: Albuterol/Ipratropium 3.0-0.5 MG/3 ML Neb Soln NEB PRN (15:58)
[2019-04-28] MEDS: ABIRATERONE PO SCH (20:51)
[2019-04-29] MEDS: Albuterol/Ipratropium 3.0-0.5 MG/3 ML Neb Soln NEB PRN ×4 (02:36→14:25)
[2019-04-29 06:36] LABS: ANION GAP 14.6; CHLORIDE,CL 103 mmol/L (101-111); SODIUM,NA 137 mmol/L (135-145)
[2019-04-29] MEDS: Formoterol/Mometasone 200-5 MCG 8.8 GM Inhaler IH SCH ×2 (07:25→17:47)
[2019-04-29] MEDS: atorvaSTATin 20 MG Tab PO SCH (10:05)
[2019-04-29] MEDS: Clopidogrel 75 MG Tab PO SCH (10:06)
[2019-04-29] MEDS: Tamsulosin 0.4 MG Cap.ER PO SCH (10:06)
[2019-04-29] MEDS: Aspirin 81 MG Tab.EC PO SCH (10:06)
[2019-04-29] MEDS: Nystatin Crm 15 GM Tube TOP SCH ×2 (10:07→20:53)
[2019-04-29] MEDS: BIMATOPROST 0.01% EYEBOTH SCH (10:08)
[2019-04-29] MEDS: Brimonidine 0.2% Ophth **OWN MED EYEBOTH SCH ×2 (10:09→20:52)
[2019-04-29] MEDS: I VITE PO SCH (10:10)
[2019-04-29] MEDS: INCRUSE ELLIPTA 62.5 MCG INH SCH (10:13)
--- NOTE | 2019-04-29 10:20 | PCM.PN ---
- General Info Date of Service: 04/29/19 Subjective Update: No new complaint today. Still has shortness of breath especially with activity. Also continues to have cough. He is expectorating yellowish sputum. No fever documented. Patient has been weaned from supplemental oxygen. - Patient Data Vitals - Most Recent: Last Vital Signs Temp 36.7 C 04/29/19 07:48 Pulse 82 04/29/19 07:48 Resp 20 04/29/19 07:48 BP 143/62 H 04/29/19 07:48 Pulse Ox 97 04/29/19 07:48 Weight - Most Recent: 87.543 kg I&O - Last 24 Hours: Intake & Output 04/28/19 04/29/19 04/29/19 22:59 06:59 14:59 Intake Total 445 120 Balance 445 120 Lab Results Last 24 Hours: Laboratory Results - last 24 hr 04/29/19 Range/Units 05:50 Sodium 137 (135-145) mmol/L Potassium 3.6 (3.6-5.0) mmol/L Chloride 103 (101-111) mmol/L Carbon Dioxide 23.0 (21.0-31.0) mmol/L Anion Gap 14.6 BUN 19 H (7-18) mg/dL Creatinine 0.5 L (0.6-1.3) mg/dL Est Cr Clr Drug Dosing 144.33 mL/min Estimated GFR (MDRD) > 60 Glucose 107 H (74-105) mg/dL Calcium 7.1 L (8.4-10.2) mg/dl Alvaro Results Last 24 Hours: Microbiology 04/27/19 09:16 Gram Stain - Final Sputum - Expectorated Sputum Culture - Preliminary YEAST 04/26/19 00:30 Stool Culture - Final Stool / Feces NORMAL ENTERIC DELLA. NO SALMONELLA, SHIGELLA, CAMPYLOBACTER OR E.COLI O157 ISOLATED. 04/26/19 00:43 Aerobic Blood Culture - Preliminary Blood NO GROWTH AFTER 3 DAYS Anaerobic Blood Culture - Preliminary NO GROWTH AFTER 3 DAYS 04/26/19 00:30 Clostridioides difficile (PCR) - Final Stool / Feces Clostridioides difficile Toxin Assay - Final Med Orders - Current: Current Medications Acetaminophen (Tylenol) 650 mg PO Q4H PRN PRN Reason: Pain (Mild 1-3)/fever Last Admin: 04/28/19 20:48 Dose: 650 mg Albuterol/Ipratropium (Duoneb 3.0-0.5 Mg/3 Ml) 3 ml NEB Q4HRRT PRN PRN Reason: Shortness of Breath Last Admin: 04/29/19 10:13 Dose: 3 ml Aspirin (Halfprin) 81 mg PO DAILY [facility] Last Admin: 04/29/19 10:06 Dose: 81 mg Atorvastatin Calcium (Lipitor) 40 mg PO DAILY [facility] Last Admin: 04/29/19 10:05 Dose: 40 mg Clopidogrel Bisulfate (Plavix) 75 mg PO DAILY [facility] Last Admin: 04/29/19 10:06 Dose: 75 mg Doxycycline Hyclate (Vibramycin) 200 mg PO BID [facility] Ceftriaxone Sodium 1 gm/ (Sodium Chloride) 50 mls @ 100 mls/hr IV Q24H [facility] Last Admin: 04/28/19 13:17 Dose: 100 mls/hr Magnesium Hydroxide (Milk Of Magnesia) 30 ml PO DAILY PRN PRN Reason: Constipation Mometasone Furoate/Formoterol Fumar (Dulera 200-5 Mcg) 2 puff IH BIDRT [facility] Last Admin: 04/29/19 07:25 Dose: 2 puff Abiraterone [Zytiga] 250 Mg/ Tab Own Med 0 mg PO BEDTIME [facility] Last Admin: 04/28/19 20:51 Dose: 1,000 mg Bimatoprost [Lumigan ] 0.01% Ophth Own Med 1 drop EYEBOTH DAILY [facility] Last Admin: 04/29/19 10:08 Dose: 1 drop Brimonidine 0.2% (Ophth Own Med) 1 drop EYEBOTH BID [facility] Last Admin: 04/29/19 10:09 Dose: 1 drop Incruse Ellipta 62.5 (Mcg Inh *Own Med) 1 puff INH DAILY [facility] Last Admin: 04/29/19 10:13 Dose: 1 puff I-Alexandra Tabs Own (Med) 1 tab PO DAILY [facility] Last Admin: 04/29/19 10:10 Dose: 1 tab Nystatin (Nystatin Crm) 0 gm TOP BID [facility] Last Admin: 04/29/19 10:07 Dose: 1 applic Ondansetron HCl (Zofran) 4 mg IVPUSH Q6H PRN PRN Reason: Nausea/Vomiting Prednisolone (Orapred 15 Mg/5ml Soln) 5.1 mg PO BIDMEALS [facility] Last Admin: 04/28/19 17:39 Dose: 5.1 mg Prednisone (Prednisone) 40 mg PO WITHBREAKFAST [facility] Tamsulosin HCl (Flomax) 0.4 mg PO DAILY [facility] Last Admin: 04/29/19 10:06 Dose: 0.4 mg Discontinued Medications Calcium Gluconate (Calcium Gluconate) 2 gm IVPUSH ONETIME ONE Stop: 04/28/19 08:21 Last Admin: 04/28/19 12:23 Dose: Not Given Heparin Sodium (Porcine) (Heparin Sodium) 5,000 units SUBCUT Q8HR [facility] Last Admin: 04/28/19 06:37 Dose: Not Given Sodium Chloride (Normal Saline) 1,000 mls @ 999 mls/hr IV .BOLUS ONE Stop: 04/26/19 02:16 Last Admin: 04/26/19 01:28 Dose: 999 mls/hr Potassium Chloride 10 meq/ (Premix) 100 mls @ 100 mls/hr IV ONETIME ONE Stop: 04/26/19 02:17 Last Admin: 04/26/19 01:33 Dose: 100 mls/hr Sodium Chloride (Normal Saline) 1,000 mls @ 125 mls/hr IV ASDIRECTED [facility] Last Admin: 04/26/19 09:41 Dose: 125 mls/hr Levofloxacin/Dextrose 500 mg/ (Premix) 100 mls @ 100 mls/hr IV ONETIME ONE Stop: 04/26/19 04:34 Last Admin: 04/26/19 03:42 Dose: 100 mls/hr Doxycycline Hyclate 100 mg/ (Sodium Chloride) 100 mls @ 100 mls/hr IV Q12HR [facility] Last Admin: 04/28/19 20:53 Dose: 100 mls/hr Potassium Chloride/Sodium Chloride (Normal Saline With 40 Meq Kcl) 1,000 mls @ 125 mls/hr IV ASDIRECTED [facility] Last Admin: 04/27/19 05:17 Dose: 125 mls/hr Calcium Gluconate 2 gm/ Sodium (Chloride) 120 mls @ 60 mls/hr IV ONETIME ONE Stop: 04/28/19 10:44 Last Admin: 04/28/19 11:50 Dose: 60 mls/hr Potassium Chloride (Klor-Con 10) 20 meq PO ONETIME ONE Stop: 04/26/19 12:38 Last Admin: 04/26/19 14:07 Dose: 20 meq - Exam General: Alert, Oriented, Cooperative Neck: Supple Lungs: Decreased Breath Sounds, Rhonchi Cardiovascular: Regular Rate, Regular Rhythm GI/Abdominal Exam: Normal Bowel Sounds, Soft, Non-Tender, No Organomegaly, No Distention, No Abnormal Bruit, No Mass, Pelvis Stable Sepsis Event Note - Evaluation Sepsis Screening Result: No Definite Risk - Focused Exam Vital Signs: Vital Signs Temp Pulse Pulse Resp BP Pulse Ox 04/29/19 07:48 36.7 C 82 20 143/62 H 97 04/29/19 07:28 88 04/29/19 04:00 36.6 C 87 20 158/66 H 98 Date Exam was Performed: 04/29/19 Time Exam was Performed: 10:17 - Problem List Review Problem List Initiated/Reviewed/Updated: Yes - My Orders Last 24 Hours: My Active Orders 04/29/19 08:00 predniSONE 40 mg PO WITHBREAKFAST 04/29/19 21:00 Doxycycline [Vibramycin] 200 mg PO BID - Plan Plan:: #. Acute exacerbation of COPD He is an active smoker Continues to have shortness of breath #.Probable acute gastroenteritis Resolved #. Probable left lower lobe pneumonia Chest x-ray showed left lower lobe infiltrate #. Metastatic prostate cancer The patient follows with Dr. Roman #. Hypertension Reasonable control #. Tobacco use disorder Counseling provided #. Peripheral artery disease Patient follows with vascular #. Benign prostatic hypertrophy Place patient on tamsulosin #. Carotid artery stenosis Patient has had previous left, carotid artery stent placement #. Hypocalcemia Likely due to hypoalbuminemia Plan: Discontinue intravenous doxycycline Start patient on oral doxycycline Continue Rocephin Start patient on prednisone 40 mg daily Encourage increased ambulation Provide incentive spirometry Aggressive nebulization with DuoNeb
[2019-04-29] MEDS: predniSONE 20 MG Tab PO SCH (10:25)
[2019-04-29] MEDS: prednisoLONE Soln 15 MG/5 ML UD Cup PO SCH (10:27)
[2019-04-29] MEDS: Doxycycline 100 MG in Sodium Chloride 0.9% 100 ML IV SCH (10:44)
[2019-04-29] MEDS: Acetaminophen 325 MG Tab PO PRN ×2 (10:54→20:55)
[2019-04-29] MEDS: Doxycycline 100 MG Cap PO SCH ×2 (10:55→20:49)
[2019-04-29] MEDS: cefTRIAXone 1 GM in Sodium Chloride 0.9% 50 ML IV SCH (10:56)
[2019-04-29] MEDS: ABIRATERONE PO SCH (20:51)
[2019-04-30] MEDS: Formoterol/Mometasone 200-5 MCG 8.8 GM Inhaler IH SCH ×2 (07:43→17:03)
[2019-04-30] MEDS: Tamsulosin 0.4 MG Cap.ER PO SCH (08:35)
[2019-04-30] MEDS: atorvaSTATin 20 MG Tab PO SCH (08:35)
[2019-04-30] MEDS: predniSONE 20 MG Tab PO SCH (08:35)
[2019-04-30] MEDS: Aspirin 81 MG Tab.EC PO SCH (08:37)
[2019-04-30] MEDS: Doxycycline 100 MG Cap PO SCH ×2 (08:37→20:52)
[2019-04-30] MEDS: Clopidogrel 75 MG Tab PO SCH (08:37)
[2019-04-30] MEDS: Nystatin Crm 15 GM Tube TOP SCH ×2 (08:37→20:54)
[2019-04-30] MEDS: I VITE PO SCH (08:38)
[2019-04-30] MEDS: BIMATOPROST 0.01% EYEBOTH SCH (08:39)
[2019-04-30] MEDS: Brimonidine 0.2% Ophth **OWN MED EYEBOTH SCH ×2 (08:39→20:56)
[2019-04-30] MEDS: INCRUSE ELLIPTA 62.5 MCG INH SCH (08:41)
[2019-04-30] MEDS ORDERED: Furosemide 40 MG/4 ML VIAL IVPUSH ONE ×2 (08:58→11:30)
--- NOTE | 2019-04-30 09:52 | PCM.PN ---
- General Info Date of Service: 04/30/19 Subjective Update: The patient was admitted with pneumonia and COPD exacerbation. Was also having acute gastroenteritis. Today, Patient continues to have some shortness of breath It is better today compared to yesterday No fever and no chills. No nausea and no vomiting Was stated to have developed mild bilateral lower extremity edema. - Review of Systems General: Reports: Weakness, Fatigue HEENT: Reports: No Symptoms Pulmonary: Reports: Shortness of Breath, Cough Cardiovascular: Reports: No Symptoms Gastrointestinal: Reports: No Symptoms - Patient Data Vitals - Most Recent: Last Vital Signs Temp 36.6 C 04/30/19 07:57 Pulse 110 H 04/30/19 07:57 Resp 20 04/30/19 07:57 BP 152/64 H 04/30/19 07:57 Pulse Ox 92 L 04/30/19 07:57 Weight - Most Recent: 87.543 kg I&O - Last 24 Hours: Intake & Output 04/29/19 04/30/19 04/30/19 22:59 06:59 14:59 Intake Total 1400 Balance 1400 Alvaro Results Last 24 Hours: Microbiology 04/27/19 09:16 Gram Stain - Final Sputum - Expectorated Sputum Culture - Final YEAST 04/26/19 00:43 Aerobic Blood Culture - Preliminary Blood NO GROWTH AFTER 4 DAYS Anaerobic Blood Culture - Preliminary NO GROWTH AFTER 4 DAYS 04/26/19 00:30 Stool Culture - Final Stool / Feces NORMAL ENTERIC DELLA. NO SALMONELLA, SHIGELLA, CAMPYLOBACTER OR E.COLI O157 ISOLATED. Med Orders - Current: Current Medications Acetaminophen (Tylenol) 650 mg PO Q4H PRN PRN Reason: Pain (Mild 1-3)/fever Last Admin: 04/29/19 20:55 Dose: 650 mg Albuterol/Ipratropium (Duoneb 3.0-0.5 Mg/3 Ml) 3 ml NEB Q4HRRT PRN PRN Reason: Shortness of Breath Last Admin: 04/29/19 14:25 Dose: 3 ml Aspirin (Halfprin) 81 mg PO DAILY [facility] Last Admin: 04/30/19 08:37 Dose: 81 mg Atorvastatin Calcium (Lipitor) 40 mg PO DAILY [facility] Last Admin: 04/30/19 08:35 Dose: 40 mg Clopidogrel Bisulfate (Plavix) 75 mg PO DAILY [facility] Last Admin: 01/07/20 08:37 Dose: 75 mg Doxycycline Hyclate (Vibramycin) 100 mg PO BID [facility] Ceftriaxone Sodium 1 gm/ (Sodium Chloride) 50 mls @ 100 mls/hr IV Q24H [facility] Last Admin: 04/29/19 10:56 Dose: 100 mls/hr Magnesium Hydroxide (Milk Of Magnesia) 30 ml PO DAILY PRN PRN Reason: Constipation Mometasone Furoate/Formoterol Fumar (Dulera 200-5 Mcg) 2 puff IH BIDRT [facility] Last Admin: 04/30/19 07:43 Dose: 2 puff Abiraterone [Zytiga] 250 Mg/ Tab Own Med 0 mg PO BEDTIME [facility] Last Admin: 04/29/19 20:51 Dose: 1,000 mg Bimatoprost [Lumigan ] 0.01% Ophth Own Med 1 drop EYEBOTH DAILY [facility] Last Admin: 04/30/19 08:39 Dose: 1 drop Brimonidine 0.2% (Ophth Own Med) 1 drop EYEBOTH BID [facility] Last Admin: 04/30/19 08:39 Dose: 1 drop Incruse Ellipta 62.5 (Mcg Inh *Own Med) 1 puff INH DAILY [facility] Last Admin: 04/30/19 08:41 Dose: 1 puff I-Alexandra Tabs Own (Med) 1 tab PO DAILY [facility] Last Admin: 04/30/19 08:38 Dose: 1 tab Nystatin (Nystatin Crm) 0 gm TOP BID [facility] Last Admin: 04/30/19 08:37 Dose: 1 applic Ondansetron HCl (Zofran) 4 mg IVPUSH Q6H PRN PRN Reason: Nausea/Vomiting Prednisolone (Orapred 15 Mg/5ml Soln) 5.1 mg PO BIDMEALS [facility] Last Admin: 04/29/19 10:27 Dose: Not Given Prednisone (Prednisone) 40 mg PO WITHBREAKFAST [facility] Last Admin: 04/30/19 08:35 Dose: 40 mg Tamsulosin HCl (Flomax) 0.4 mg PO DAILY [facility] Last Admin: 04/30/19 08:35 Dose: 0.4 mg Discontinued Medications Calcium Gluconate (Calcium Gluconate) 2 gm IVPUSH ONETIME ONE Stop: 04/28/19 08:21 Last Admin: 04/28/19 12:23 Dose: Not Given Doxycycline Hyclate (Vibramycin) 200 mg PO BID [facility] Last Admin: 04/30/19 08:37 Dose: 200 mg Furosemide (Lasix) 40 mg IVPUSH NOW ONE Stop: 04/30/19 08:59 Heparin Sodium (Porcine) (Heparin Sodium) 5,000 units SUBCUT Q8HR [facility] Last Admin: 04/28/19 06:37 Dose: Not Given Sodium Chloride (Normal Saline) 1,000 mls @ 999 mls/hr IV .BOLUS ONE Stop: 04/26/19 02:16 Last Admin: 04/26/19 01:28 Dose: 999 mls/hr Potassium Chloride 10 meq/ (Premix) 100 mls @ 100 mls/hr IV ONETIME ONE Stop: 04/26/19 02:17 Last Admin: 04/26/19 01:33 Dose: 100 mls/hr Sodium Chloride (Normal Saline) 1,000 mls @ 125 mls/hr IV ASDIRECTED [facility] Last Admin: 04/26/19 09:41 Dose: 125 mls/hr Levofloxacin/Dextrose 500 mg/ (Premix) 100 mls @ 100 mls/hr IV ONETIME ONE Stop: 04/26/19 04:34 Last Admin: 04/26/19 03:42 Dose: 100 mls/hr Doxycycline Hyclate 100 mg/ (Sodium Chloride) 100 mls @ 100 mls/hr IV Q12HR [facility] Last Admin: 04/29/19 10:44 Dose: Not Given Potassium Chloride/Sodium Chloride (Normal Saline With 40 Meq Kcl) 1,000 mls @ 125 mls/hr IV ASDIRECTED [facility] Last Admin: 04/27/19 05:17 Dose: 125 mls/hr Calcium Gluconate 2 gm/ Sodium (Chloride) 120 mls @ 60 mls/hr IV ONETIME ONE Stop: 04/28/19 10:44 Last Admin: 04/28/19 11:50 Dose: 60 mls/hr Potassium Chloride (Klor-Con 10) 20 meq PO ONETIME ONE Stop: 04/26/19 12:38 Last Admin: 04/26/19 14:07 Dose: 20 meq - Exam Quality Assessment: Supplemental Oxygen General: Alert, Oriented Neck: Supple Lungs: Rhonchi Cardiovascular: Regular Rate, Regular Rhythm GI/Abdominal Exam: Normal Bowel Sounds, Soft, Non-Tender, No Organomegaly, No Distention, No Abnormal Bruit, No Mass, Pelvis Stable Extremities: Other (Trace lower extremity edema) Sepsis Event Note - Evaluation Sepsis Screening Result: No Definite Risk - Focused Exam Vital Signs: Vital Signs Temp Pulse Resp BP BP Pulse Ox 04/30/19 07:57 36.6 C 110 H 20 152/64 H 92 L 04/30/19 04:00 36.9 C 102 H 20 142/60 H 97 Date Exam was Performed: 04/30/19 Time Exam was Performed: 09:49 - Problem List Review Problem List Initiated/Reviewed/Updated: Yes - My Orders Last 24 Hours: My Active Orders 04/29/19 10:30 predniSONE 40 mg PO WITHBREAKFAST 04/29/19 15:56 6 Minute Walk Test [RT Physical Performance Test] [RESPCARE] Routine 04/30/19 08:58 CXR [Chest 1V Frontal] [CR] Routine 04/30/19 09:21 B-TYPE NATRIURETIC PEPTIDE,BNP [CHEM] Routine 04/30/19 21:00 Doxycycline [Vibramycin] 100 mg PO BID - Plan Plan:: #. Acute exacerbation of COPD He is an active smoker Continues to have shortness of breath #.Probable acute gastroenteritis Resolved #. Probable left lower lobe pneumonia Chest x-ray showed left lower lobe infiltrate #. Metastatic prostate cancer The patient follows with Dr. Roman Has appointment with oncology 05/01/19 #. Hypertension Reasonable control #. Tobacco use disorder Counseling provided #. Peripheral artery disease Patient follows with vascular #. Benign prostatic hypertrophy Place patient on tamsulosin #. Carotid artery stenosis Patient has had previous left, carotid artery stent placement #. Hypocalcemia Likely due to hypoalbuminemia Plan: Send sample for brain natruretic peptide Obtain repeat chest x-ray Give intravenous Lasix 40 mg now Wean down oxygen as tolerated Incentive spirometry Continue aggressive nebulization with bronchodilators
[2019-04-30] MEDS: Acetaminophen 325 MG Tab PO PRN ×3 (11:10→21:47)
[2019-04-30] MEDS: cefTRIAXone 1 GM in Sodium Chloride 0.9% 50 ML IV SCH (11:12)
--- NOTE | 2019-04-30 13:32 | CR ---
EXAMINATION: Chest 1V Frontal SEX: Male AGE: 73 years CLINICAL HISTORY: 73-year-old male with SOB. INTERPRETATION: 1. Chronic asymmetric left midlung/lingular consolidation and ipsilateral pleural reactive changes present on 26 April 2019 film. 2. Normal cardiac silhouette without new cephalization of vascular flow, alveolar edema or dependent pleural fluid accumulation. 3. No new lung mass or hilar lymphadenopathy. 4. No other focal lobar consolidation. 5. No pneumothorax or pneumomediastinum. 6. Old healed fracture deformity right clavicle. CONCLUSION: Chronic left lung abnormality noted on 26 April 2019 and common more importantly, on 27 April 2014.
[2019-04-30] MEDS: ABIRATERONE PO SCH (20:58)
[2019-05-01] MEDS: Formoterol/Mometasone 200-5 MCG 8.8 GM Inhaler IH SCH (06:19)
[2019-05-01] MEDS: Clopidogrel 75 MG Tab PO SCH (08:49)
[2019-05-01] MEDS: predniSONE 20 MG Tab PO SCH (08:50)
[2019-05-01] MEDS: Aspirin 81 MG Tab.EC PO SCH (08:50)
[2019-05-01] MEDS: atorvaSTATin 20 MG Tab PO SCH (08:50)
[2019-05-01] MEDS: Doxycycline 100 MG Cap PO SCH (08:51)
[2019-05-01] MEDS: Nystatin Crm 15 GM Tube TOP SCH (08:52)
[2019-05-01] MEDS: I VITE PO SCH (08:53)
[2019-05-01] MEDS: Brimonidine 0.2% Ophth **OWN MED EYEBOTH SCH (08:54)
[2019-05-01] MEDS: INCRUSE ELLIPTA 62.5 MCG INH SCH (08:55)
[2019-05-01] MEDS: BIMATOPROST 0.01% EYEBOTH SCH (08:56)
[2019-05-01] MEDS ORDERED: Furosemide 20 MG Tab PO SCH (10:00)
--- NOTE | 2019-05-01 10:19 | PCM.DCSUM1 ---
Discharge Summary - Hospital Course Free Text/Narrative:: presented with diarrhea, cough, sob #. Acute exacerbation of COPD He is an active smoker treated with steroids, nebs did not feel his inhalers were helpful at home will transition to nebulized meds #.Probable acute gastroenteritis Resolved #. Probable left lower lobe pneumonia Chest x-ray showed left lower lobe infiltrate treated with doxy, ceftriaxone will finish with PO ceftriaxone #. Metastatic prostate cancer The patient follows with Dr. Roman Has appointment with oncology 05/01/19 #. Hypertension monitor as out pt #. Tobacco use disorder Counseling provided #. Benign prostatic hypertrophy Place patient on tamsulosin #. LE edema noted initially was given IVF started short course of diuretics Diagnosis: Stroke: No - Discharge Data Discharge Date: 05/01/19 Discharge Disposition: Home, Self-Care 01 Condition: Stable - Referral to Home Health Primary Care Physician: PCP Unobtainable - Patient Summary/Data Consults: Consultations 04/26/19 11:38 OT Evaluation and Treatment [CONS] Routine PT Evaluation and Treatment [CONS] Routine - Patient Instructions Diet: Heart Healthy Diet Activity: As Tolerated - Discharge Plan *PRESCRIPTION DRUG MONITORING PROGRAM REVIEWED*: Not Applicable *COPY OF PRESCRIPTION DRUG MONITORING REPORT IN PATIENT ARGELIA: Not Applicable Prescriptions/Med Rec: Albuterol/Ipratropium [DuoNeb 3.0-0.5 MG/3 ML] 3 ml NEB Q4HRRT PRN #60 neb PRN Reason: Shortness Of Breath Budesonide [Pulmicort] 0.5 mg IH BID #60 neb Doxycycline [Vibramycin] 100 mg PO BID #14 cap Formoterol [Foradil] 1 puff INH BID #1 kit Furosemide [Lasix] 20 mg PO DAILY #2 tablet predniSONE 20 mg PO WITHBREAKFAST #3 tablet Home Medications: Home Meds Bimatoprost [LUMIGAN 0.01% Ophth Soln] 1 drop EYEBOTH DAILY 10/10/14 [History] predniSONE [predniSONE 5 MG/5 ML] 5 mg PO BIDMEALS 03/14/19 [History] Abiraterone Acetate [Zytiga] 1,000 mg PO DAILY 04/26/19 [History] Acetaminophen [Tylenol] 650 mg PO Q4HR PRN 04/26/19 [History] Albuterol [Proventil HFA] 2 puff INH QID PRN 04/26/19 [History] Aspirin [Ecotrin EC] 81 mg PO DAILY 04/26/19 [History] Bimatoprost [LUMIGAN 0.01% Ophth Soln] 2.5 ml EYEBOTH DAILY 04/26/19 [History] Brimonidine [Alphagan 0.2% Ophth Soln] 1 drop EYEBOTH BID 04/26/19 [History] Calcium Carb, Citrate/Vit D3 [Citracal + D ER] 2 tab PO DAILY 04/26/19 [History] Clopidogrel [Plavix] 75 mg PO DAILY 04/26/19 [History] Denosumab [Xgeva] 120 mg SUBCUT .[id number] 04/26/19 [History] Lifitegrast [Xiidra] 1 drop EYEBOTH BID 04/26/19 [History] Lisinopril [Zestril] 10 mg PO DAILY 04/26/19 [History] Lutein/Minerals/Vit A,C & E [I-Alexandra] 1 tab PO DAILY 04/26/19 [History] Magnesium Hydroxide [Milk of Magnesia] 30 ml PO DAILY PRN 04/26/19 [History] Naftifine HCl [Naftin] 1 applic TOP DAILY 04/26/19 [History] Tamsulosin HCl [Flomax] 0.4 mg PO DAILY 04/26/19 [History] Umeclidinium [place] [Incruse Ellipta*] 1 puff INH DAILY 04/26/19 [History] Umeclidinium [place] [Incruse Ellipta*] 1 puff INH DAILY 04/26/19 [History] Vit A/C/E AC/Znox/Cupric Oxide [Eye Vitamin-Minerals Tablet] 1 tab PO DAILY 07/11 [History] atorvaSTATin Calcium [Lipitor] 40 mg PO DAILY 04/26/19 [History] Albuterol/Ipratropium [DuoNeb 3.0-0.5 MG/3 ML] 3 ml NEB Q4HRRT PRN #60 neb 05/01 [Rx] Budesonide [Pulmicort] 0.5 mg IH BID #60 neb 05/01/19 [Rx] Doxycycline [Vibramycin] 100 mg PO BID #14 cap 05/01/19 [Rx] Formoterol [Foradil] 1 puff INH BID #1 kit 05/01/19 [Rx] Furosemide [Lasix] 20 mg PO DAILY #2 tablet 05/01/19 [Rx] predniSONE 20 mg PO WITHBREAKFAST #3 tablet 05/01/19 [Rx] Referrals: PCP,Unobtain [Primary Care Provider] - (dr. Antonio in 2-3 days) - Discharge Summary/Plan Comment DC Time >30 min.: No - General Info Date of Service: 05/01/19 Admission Dx/Problem (Free Text: Admission Diagnosis/Problem Admission Diagnosis/Problem Gastroenteritis, pneumonia Subjective Update: Patient continues to have some shortness of breath with activity but off oxygen , independent in room No fever and no chills. No nausea and no vomiting continued to have bilateral lower extremity edema. Functional Status: Reports: Tolerating Diet - Review of Systems General: Denies: Fever Pulmonary: Reports: Shortness of Breath Cardiovascular: Reports: Edema. Denies: Chest Pain Gastrointestinal: Denies: Abdominal Pain Genitourinary: Denies: Dysuria - Patient Data Vitals - Most Recent: Last Vital Signs Temp 36.8 C 05/01/19 07:50 Pulse 93 05/01/19 07:50 Resp 18 05/01/19 07:50 BP 170/69 H 05/01/19 07:50 Pulse Ox 96 05/01/19 07:50 Weight - Most Recent: 92.896 kg I&O - Last 24 hours: Intake & Output 04/30/19 05/01/19 05/01/19 22:59 06:59 14:59 Intake Total 500 250 Balance 500 250 TIM Results - Last 24 hrs: Microbiology 04/26/19 00:43 Aerobic Blood Culture - Final Blood NO GROWTH AFTER 5 DAYS Anaerobic Blood Culture - Final NO GROWTH AFTER 5 DAYS 04/27/19 09:16 Gram Stain - Final Sputum - Expectorated Sputum Culture - Final YEAST Med Orders - Current: Current Medications Acetaminophen (Tylenol) 650 mg PO Q4H PRN PRN Reason: Pain (Mild 1-3)/fever Last Admin: 04/30/19 21:47 Dose: 650 mg Albuterol/Ipratropium (Duoneb 3.0-0.5 Mg/3 Ml) 3 ml NEB Q4HRRT PRN PRN Reason: Shortness of Breath Last Admin: 04/29/19 14:25 Dose: 3 ml Aspirin (Halfprin) 81 mg PO DAILY TEMI Last Admin: 05/01/19 08:50 Dose: 81 mg Atorvastatin Calcium (Lipitor) 40 mg PO DAILY [facility] Last Admin: 05/01/19 08:50 Dose: 40 mg Clopidogrel Bisulfate (Plavix) 75 mg PO DAILY [facility] Last Admin: 05/01/19 08:49 Dose: 75 mg Doxycycline Hyclate (Vibramycin) 100 mg PO BID [facility] Last Admin: 05/01/19 08:51 Dose: 100 mg Furosemide (Lasix) 20 mg PO DAILY [facility] Ceftriaxone Sodium 1 gm/ (Sodium Chloride) 50 mls @ 100 mls/hr IV Q24H [facility] Last Admin: 04/30/19 11:12 Dose: 50 mls/hr Magnesium Hydroxide (Milk Of Magnesia) 30 ml PO DAILY PRN PRN Reason: Constipation Mometasone Furoate/Formoterol Fumar (Dulera 200-5 Mcg) 2 puff IH BIDRT [facility] Last Admin: 05/01/19 06:19 Dose: 2 puff Abiraterone [Zytiga] 250 Mg/ Tab Own Med 0 mg PO BEDTIME [facility] Last Admin: 04/30/19 20:58 Dose: 1,000 mg Bimatoprost [Lumigan ] 0.01% Ophth Own Med 1 drop EYEBOTH DAILY [facility] Last Admin: 05/01/19 08:56 Dose: 1 drop Brimonidine 0.2% (Ophth Own Med) 1 drop EYEBOTH BID [facility] Last Admin: 05/01/19 08:54 Dose: 1 drop Incruse Ellipta 62.5 (Mcg Inh *Own Med) 1 puff INH DAILY [facility] Last Admin: 05/01/19 08:55 Dose: 1 puff I-Alexandra Tabs Own (Med) 1 tab PO DAILY [facility] Last Admin: 05/01/19 08:53 Dose: 1 tab Nystatin (Nystatin Crm) 0 gm TOP BID [facility] Last Admin: 05/01/19 08:52 Dose: 1 applic Ondansetron HCl (Zofran) 4 mg IVPUSH Q6H PRN PRN Reason: Nausea/Vomiting Prednisolone (Orapred 15 Mg/5ml Soln) 5.1 mg PO BIDMEALS [facility] Last Admin: 04/29/19 10:27 Dose: Not Given Prednisone (Prednisone) 40 mg PO WITHBREAKFAST [facility] Last Admin: 05/01/19 08:50 Dose: 40 mg Tamsulosin HCl (Flomax) 0.4 mg PO BEDTIME [facility] Discontinued Medications Calcium Gluconate (Calcium Gluconate) 2 gm IVPUSH ONETIME ONE Stop: 04/28/19 08:21 Last Admin: 04/28/19 12:23 Dose: Not Given Doxycycline Hyclate (Vibramycin) 200 mg PO BID [facility] Last Admin: 04/30/19 08:37 Dose: 200 mg Furosemide (Lasix) 40 mg IVPUSH NOW ONE Stop: 04/30/19 11:31 Last Admin: 04/30/19 11:40 Dose: 40 mg Heparin Sodium (Porcine) (Heparin Sodium) 5,000 units SUBCUT Q8HR [facility] Last Admin: 04/28/19 06:37 Dose: Not Given Sodium Chloride (Normal Saline) 1,000 mls @ 999 mls/hr IV .BOLUS ONE Stop: 04/26/19 02:16 Last Admin: 04/26/19 01:28 Dose: 999 mls/hr Potassium Chloride 10 meq/ (Premix) 100 mls @ 100 mls/hr IV ONETIME ONE Stop: 04/26/19 02:17 Last Admin: 04/26/19 01:33 Dose: 100 mls/hr Sodium Chloride (Normal Saline) 1,000 mls @ 125 mls/hr IV ASDIRECTED [facility] Last Admin: 04/26/19 09:41 Dose: 125 mls/hr Levofloxacin/Dextrose 500 mg/ (Premix) 100 mls @ 100 mls/hr IV ONETIME ONE Stop: 04/26/19 04:34 Last Admin: 04/26/19 03:42 Dose: 100 mls/hr Doxycycline Hyclate 100 mg/ (Sodium Chloride) 100 mls @ 100 mls/hr IV Q12HR [facility] Last Admin: 04/29/19 10:44 Dose: Not Given Potassium Chloride/Sodium Chloride (Normal Saline With 40 Meq Kcl) 1,000 mls @ 125 mls/hr IV ASDIRECTED [facility] Last Admin: 04/27/19 05:17 Dose: 125 mls/hr Calcium Gluconate 2 gm/ Sodium (Chloride) 120 mls @ 60 mls/hr IV ONETIME ONE Stop: 04/28/19 10:44 Last Admin: 04/28/19 11:50 Dose: 60 mls/hr Potassium Chloride (Klor-Con 10) 20 meq PO ONETIME ONE Stop: 04/26/19 12:38 Last Admin: 04/26/19 14:07 Dose: 20 meq Tamsulosin HCl (Flomax) 0.4 mg PO DAILY TEMI Last Admin: 04/30/19 08:35 Dose: 0.4 mg - Exam Quality Assessment: Denies: Supplemental Oxygen General: Reports: Alert, Oriented Neck: Reports: Supple Lungs: Reports: Normal Respiratory Effort, Wheezing Cardiovascular: Reports: Regular Rate, Regular Rhythm GI/Abdominal Exam: Normal Bowel Sounds, Soft, Non-Tender Extremities: No Pedal Edema
[2019-05-01] MEDS: cefTRIAXone 1 GM in Sodium Chloride 0.9% 50 ML IV SCH (10:57)
[2019-05-01] MEDS: Acetaminophen 325 MG Tab PO PRN (11:17)
[2019-05-01 11:37] VITALS: BP 147/52; PULSE 97
[2019-05-01] MEDS ORDERED: Tamsulosin 0.4 MG Cap.ER PO SCH (21:00)
== END 2019-05-01 15:04 | disposition home or self-care (01) | DRG 391 ==
LOC: DL.ED 23:46 → DL.MS 04-26 01:53 → OBSVTOIN 04-26 11:55
PROVIDERS: ADMIT Hospitalist; ATTEND Hospitalist
DX: K52.9 Noninfective gastroenteritis and colitis, unspecified (principal); E87.6 Hypokalemia; J18.9 Pneumonia, unspecified organism; J44.9 Chronic obstructive pulmonary disease, unspecified; J44.1 Chronic obstructive pulmonary disease with (acute) exacerbation; E87.1 Hypo-osmolality and hyponatremia; J44.0 Chronic obstructive pulmonary disease with (acute) lower respiratory infection; I87.2 Venous insufficiency (chronic) (peripheral); F17.210 Nicotine dependence, cigarettes, uncomplicated; C61 Malignant neoplasm of prostate; I10 Essential (primary) hypertension; Z87.891 Personal history of nicotine dependence; N40.0 Benign prostatic hyperplasia without lower urinary tract symptoms; R60.0 Localized edema; E83.51 Hypocalcemia; I73.9 Peripheral vascular disease, unspecified; I65.29 Occlusion and stenosis of unspecified carotid artery; H54.7 Unspecified visual loss; H91.90 Unspecified hearing loss, unspecified ear; H35.30 Unspecified macular degeneration; N35.919 Unspecified urethral stricture, male, unspecified site; H54.62 Unqualified visual loss, left eye, normal vision right eye; Z79.899 Other long term (current) drug therapy; Z79.82 Long term (current) use of aspirin; Z79.52 Long term (current) use of systemic steroids; Z71.6 Tobacco abuse counseling
CPT/HCPCS: 36415; 71045; 80048; 80053; 82150; 82272; 83690; 83880; 84484; 85025 ×2; 87040; 87045; 87046 ×2; 87493; 93005; 96360; 99285; J0696; J1644; J1956; J3480; J7030 ×2; J7050; 80076; 82330; 87070; 87205; 94640; 94667; 97162-GP; 97165-GO; A9270-GY; J0610; J1940; J3490; J7620-GY

== ENCOUNTER 2019-05-22 07:00 | Day surgery (SDC) | payer MEDICARE, MEDICAID ==
[~2019-05-22 07:00] MED LIST: Dextrose 5%-0.45% NaCl 1,000 ML IV SCH; Midazolam 1 MG/ML 2 ML SDV ONE; Sodium Chloride 0.9% 10 ML Syringe FLUSH PRN; fentaNYL 100 MCG/2 ML SDV ONE
[2019-05-22] MEDS ORDERED: Midazolam 1 MG/ML 2 ML SDV IV ONE ×3 (07:01→08:11)
[2019-05-22] MEDS ORDERED: fentaNYL 100 MCG/2 ML SDV IV ONE ×3 (07:01→08:08)
--- NOTE | 2019-05-22 09:24 | OR ---
DATE: 05/22/2019 PROCEDURES: Esophagogastroduodenoscopy and multiple pinch biopsies. INSTRUMENT USED: [id number]-[id number] Olympus video panendoscope. PREMEDICATIONS: No oral or topical anesthesia used. Fentanyl 100 mcg intravenous, Versed 2 mg intravenous, nasal O2 cannula. The procedure was done under pulse oximetry, BP recording, and desk monitor. INDICATION: The patient with dysphagia as well as dyspepsia, unexplained and not responsive to medical measures. Esophagogastroduodenoscopy is performed for detection of any active erosive lesions, Romero esophagus and/or malignancy also under consideration, H pylori status to be determined, esophageal dilatations if indicated, endoscopic hemostasis therapy if needed. PROCEDURE IN DETAIL: The scope was passed with ease. Adequate visualization of the esophagus was made from proximal to distal areas. No upper esophageal lesions identified. No distal esophageal stricture. No uphill or downhill esophageal varices. No Cydney-Sanders tear. No evidence of erosive esophagitis by [place] criteria. No esophageal polyp or tumor mass identified. There was some amount of retained food material in the esophagus. No distal esophageal stricture. Z-line was seen at around 39 cm distal to the oral verge, configuration consistent with grade 1 by ZAP classification. No esophageal polyp or tumor mass identified. No proximal gastric varices noted. Gastric fundus examination by retroflexion showed no polypoid lesions. No gastric ulcer, malignant mass, or vascular ectasia identified. Scattered gastric antral erosions were noted without bleeding from them. Duodenal bulb showed no ulcer. Visualized second part of the duodenum was unremarkable. Multiple pinch biopsies were taken from the gastric antrum and proximal body and sent for PyloriTek test for H pylori, and if negative in an hour, the tissue is to be sent for histopathology. No bleeding was noted from any of the visualized areas at the completion of examination. Photographs were taken of the duodenal bulb, gastric antrum, fundus, and distal esophagus. IMPRESSION: Gastric antral erosions. The patient tolerated the procedure well. [facility] /[id number]
--- NOTE | 2019-05-22 10:33 | LETTER ---
05/22/2019 Carlee Boyle NP [facility] [place] [address] RE: BERNY DONALD : 1945 Dear Ms. Boyle: Mr. Berny Donald had esophagogastroduodenoscopy done this morning and he tolerated the procedure well. I herewith send a copy of the endoscopy note and photographs for your review. Thank you. Sincerely, [facility] /[id number]
[2019-05-22 12:48] VITALS: BP 118/59; PULSE 93
== END 2019-05-22 10:23 | disposition home or self-care (01) ==
LOC: DL.ENDO 07:00
PROVIDERS: ATTEND Internal Medicine Gastroenterology
DX: K25.9 Gastric ulcer, unspecified as acute or chronic, without hemorrhage or perforation (principal); J44.9 Chronic obstructive pulmonary disease, unspecified; K21.9 Gastro-esophageal reflux disease without esophagitis; M81.0 Age-related osteoporosis without current pathological fracture; Z87.891 Personal history of nicotine dependence; Z79.82 Long term (current) use of aspirin
CPT/HCPCS: 43239; 87077; J2250; J3010; J7042; 88305

== ENCOUNTER 2020-01-23 21:36 | Inpatient (IN) | payer MEDICARE, MEDICAID ==
[2020-01-23 22:38] LABS: ANION GAP 12.2 mEq/L (7-13); CHLORIDE,CL 96 mmol/L (98-107); SODIUM,NA 133 mmol/L (136-145)
--- NOTE | 2020-01-23 22:48 | CR ---
PROCEDURE INFORMATION: Exam: XR Chest, 1 View Exam date and time: 01/23/2020 10:27 PM Age: 74 years old Clinical indication: Other: In; Additional info: Chest pain TECHNIQUE: Imaging protocol: XR of the chest Views: 1 view. COMPARISON: CT Chest wo Cont 09/09/2019 12:38 PM FINDINGS: Lungs: Unremarkable. No consolidation. Pleural space: Bilateral minimal pleural thickening at the lung bases. Heart/Mediastinum: Minimal cardiomegaly. Bones/joints: Unremarkable. IMPRESSION: 1. Bilateral lower lobe pleural thickening. 2. Mild cardiomegaly. 3. No definite focal infiltrates to suggest pneumonia.
[2020-01-23] MEDS ORDERED: Iopamidol 612 MG/ML 100 ML Bottle IVPUSH ONE (22:53)
--- NOTE | 2020-01-23 23:15 | EDM.PDOC ---
ED HPI GENERAL MEDICAL PROBLEM - General Chief Complaint: General Stated Complaint: COMING IN BY [facility] Time Seen by Provider: 01/23/20 21:45 Source of Information: Reports: Patient, EMS, EMS Notes Reviewed, Old Records, RN, RN Notes Reviewed History Limitations: Reports: No Limitations - History of Present Illness INITIAL COMMENTS - FREE TEXT/NARRATIVE: Patient presents to ER per [facility]. Patient has history of peripheral artery disease, dermis stasis, and COPD. Patient also has a history of prostate cancer. Sees Dr. Henriquez for this. Patient was also seen recently in [place] and diagnosed with cellulitis of the lower extremities. Lymphedema wraps have been being used, and patient was put on clindamycin and cephalexin. Patient has developed Diarrhea today, and states he is also had some nausea. Patient is currently taking Keflex and clindamycin for the cellulitis of the legs. States he has had a decrease in his urine output, and has been taking Lasix 60 twice daily. Patient states his belly is large, distended, hard, and that has been progressively getting worse. Patient states he asked to come to the ER today because his legs do not seem to be improving, and he is unable to be up and around walking on his own as he had been in the past. Onset: Gradual - Related Data Allergies Allergy/AdvReac Type Severity Reaction Status Date / Time No Known Allergies Allergy Verified 01/23/20 22:18 Home Meds: Home Meds Bimatoprost [LUMIGAN 0.01% Ophth Soln] 1 drop EYEBOTH DAILY 10/10/14 [History] predniSONE [predniSONE 5 MG/5 ML] 5 mg PO BIDMEALS 03/14/19 [History] Abiraterone Acetate [Zytiga] 1,000 mg PO DAILY 04/26/19 [History] Acetaminophen [Tylenol] 650 mg PO Q4HR PRN 04/26/19 [History] Aspirin [Ecotrin EC] 81 mg PO DAILY 04/26/19 [History] Brimonidine [Alphagan 0.2% Ophth Soln] 1 drop EYEBOTH BID 04/26/19 [History] Calcium Carb, Citrate/Vit D3 [Citracal + D ER] 2 tab PO DAILY 04/26/19 [History] Clopidogrel [Plavix] 75 mg PO DAILY 04/26/19 [History] Lifitegrast [Xiidra] 1 drop EYEBOTH BID 04/26/19 [History] Lutein/Minerals/Vit A,C & E [I-Alexandra] 1 tab PO DAILY 04/26/19 [History] Naftifine HCl [Naftin] 1 applic TOP DAILY 04/26/19 [History] Tamsulosin HCl [Flomax] 0.4 mg PO DAILY 04/26/19 [History] Umeclidinium Henderson [Incruse Ellipta*] 1 puff INH DAILY 04/26/19 [History] atorvaSTATin Calcium [Lipitor] 40 mg PO DAILY 04/26/19 [History] lisinopriL [Zestril] 10 mg PO DAILY 04/26/19 [History] Albuterol/Ipratropium [DuoNeb 3.0-0.5 MG/3 ML] 3 ml NEB Q4HRRT PRN #60 neb 05/01/19 [Rx] Budesonide [Pulmicort] 0.5 mg IH BID #60 neb 05/01/19 [Rx] Formoterol Fumarate [Perforomist] 20 mcg IH BID #60 units 05/01/19 [Rx] predniSONE 20 mg PO WITHBREAKFAST #3 tablet 05/01/19 [Rx] Furosemide [Lasix] 60 mg PO DAILY 01/23/20 [History] Past Medical History HEENT History: Reports: Hard of Hearing, Impaired Vision Other HEENT History: UPPER AND LOWER DENTURES Cardiovascular History: Reports: Hypertension, Other (See Below) Other Cardiovascular History: ESSENTIAL HYPERTENSION. Silk Rodes Procedure on February 26. PERIPHRAL ARTERY DISEASE Respiratory History: Reports: COPD, SOB Other Gastrointestinal History: FOOD IMPACTION OF ESOPHAGUS Genitourinary History: Reports: Prostate Disorder Other Genitourinary History: URETHRAL STRICTURE Other Musculoskeletal History: DIASTASIS RECTI Neurological History: Reports: CVA Psychiatric History: Reports: Panic Attack Other Psychiatric History: hx of tobacco abuse, alcohol abuse. panic attack after father's Endocrine/Metabolic History: Reports: Obesity/BMI 30+, Osteoporosis Hematologic History: Reports: Anemia Immunologic History: Reports: None Oncologic (Cancer) History: Reports: Bone, Prostate Dermatologic History: Reports: Venous Stasis Dermatitis - Past Surgical History HEENT Surgical History: Reports: Cataract Surgery Other HEENT Surgeries/Procedures: blind in left eye, macular degeneration Cardiovascular Surgical History: Reports: Carotid Stents Other Cardiovascular Surgeries/Procedures: left side carotid stent GI Surgical History: Reports: EGD, Hernia Repair/Other Male Surgical History: Reports: Prostate Biopsy Other Male Surgeries/Procedures: Dilitation of urethra due to scar tissue. Social & Family History - Family History Family Medical History: Noncontributory - Tobacco Use Smoking Status *Q: Former Smoker Used Tobacco, but Quit: Yes Month/Year Tobacco Last Used: - Caffeine Use Caffeine Use: Reports: Coffee - Recreational Drug Use Recreational Drug Use: No - Living Situation & Occupation Living situation: Reports: Single, Alone Occupation: Retired ED ROS GENERAL - Review of Systems Review Of Systems: Comprehensive ROS is negative, except as noted in HPI. ED EXAM, GENERAL - Physical Exam Exam: See Below Exam Limited By: No Limitations General Appearance: Alert, WD/WN, Mild Distress, Obese, Other (Edematous throughout) Eye Exam: Bilateral Eye: EOMI, Normal Inspection Ears: Normal External Exam, Hearing Grossly Normal Nose: Normal Inspection Throat/Mouth: Normal Inspection, Normal Voice, No Airway Compromise Head: Atraumatic, Normocephalic Neck: Normal Inspection, Supple, Non-Tender, Full Range of Motion Respiratory/Chest: No Accessory Muscle Use, Chest Non-Tender, Decreased Breath Sounds, Crackles (Bases bilaterally) Cardiovascular: Normal Peripheral Pulses, Regular Rate, Rhythm, No Gallop, No Murmur, No Rub, Other (+3 pitting edema to the lower extremities bilaterally) Peripheral Pulses: 1+: Dorsalis Pedis (L), Dorsalis Pedis (R), 2+: Radial (L), Radial (R) GI/Abdominal: Distended, Rigid, Abnormal Bowel Sounds (Hypoactive) (Male) Exam: Deferred Rectal (Males) Exam: Deferred Back Exam: Normal Inspection, Decreased Range of Motion Extremities: Pedal Edema (Bilaterally +3 pitting), Leg Pain (Lower extremities bilaterally), Limited Range of Motion (Legs bilaterally), Redness (Purple/red discoloration from the knees down bilaterally) Neurological: Alert, Oriented, Normal Cognition Psychiatric: Normal Affect, Normal Mood Skin Exam: Warm, Erythema (Lower legs bilaterally), Lymphangitis (Lower legs bilaterally), Other (Lower legs bilaterally are weeping a clear yellow fluid) Lymphatic: No Adenopathy Course - Vital Signs Last Recorded V/S: Last Vital Signs Temp 98.4 F 01/23/20 21:36 Pulse 97 01/23/20 21:36 Resp 16 01/23/20 21:36 BP 130/50 L 01/23/20 21:36 Pulse Ox 99 01/23/20 21:36 - Orders/Labs/Meds Orders: Active Orders 24 hr Category Date Time Status Admission Diagnosis [ADT] Stat ADT 01/24/20 00:23 Ordered Admission Status [Patient Status] [ADT] Routine ADT 01/24/20 00:23 Active EKG Documentation Completion [RC] STAT Care 01/23/20 21:36 Active CULTURE BLOOD [BC] Stat Lab 01/23/20 22:10 Results CULTURE BLOOD [BC] Stat Lab 01/23/20 22:15 Results CULTURE STOOL [RM] Stat Lab 01/24/20 00:02 Ordered PARASITES, STOOL O&P [MREF] Stat Lab 01/24/20 00:02 Ordered UA RFX TIM AND CULT IF INDIC [URIN] Stat Lab 01/23/20 23:55 Ordered Blood Culture x2 Reflex Set [OM.PC] Stat Oth 01/23/20 21:37 Ordered Labs: Laboratory Tests 01/23/20 01/23/20 01/23/20 Range/Units 22:10 22:10 22:10 WBC 12.0 H (5.0-10.0) 10^3/uL RBC 2.98 L (4.6-6.2) 10^6/uL Hgb 9.6 L D (14.0-18.0) g/dL Hct 29.9 L (40.0-54.0) % MCV 100.3 H (80-100) fL MCH 32.2 (27.0-34.0) pg MCHC 32.1 L (33.0-35.0) g/dL Plt Count 238 (150-450) 10^3/uL Neut % (Auto) 67.9 (42.2-75.2) % Lymph % (Auto) 21.3 (20.5-50.1) % [place] % (Auto) 8.0 (2-8) % Eos % (Auto) 2.4 (1.0-3.0) % Baso % (Auto) 0.4 (0.0-1.0) % PT 10.1 (9.0-12.0) SEC INR 1.1 (0.9-1.2) Sodium 133 L (136-145) mmol/L Potassium 4.2 (3.5-5.1) mmol/L Chloride 96 L (98-107) mmol/L Carbon Dioxide 29 (21-32) mmol/L Anion Gap 12.2 (7-13) mEq/L BUN 35 H (7-18) mg/dL Creatinine 1.16 (0.70-1.30) mg/dL Est Cr Clr Drug Dosing 61.31 mL/min Estimated GFR (MDRD) > 60 BUN/Creatinine Ratio 30.2 (No establ ref range) Glucose 117 H (74-99) mg/dL Lactic Acid (0.4-2.0) mmol/L Calcium 9.4 (8.5-10.1) mg/dL Total Bilirubin 0.6 (0.2-1.0) mg/dL AST 28 (15-37) U/L ALT 41 (16-63) U/L Alkaline Phosphatase 85 (46-116) U/L B-Natriuretic Peptide 90 (0-100) pg/ml Total Protein 6.5 (6.4-8.2) g/dL Albumin 2.2 L (3.4-5.0) g/dL Globulin 4.3 Albumin/Globulin Ratio 0.51 01/23/20 Range/Units 22:10 WBC (5.0-10.0) 10^3/uL RBC (4.6-6.2) 10^6/uL Hgb (14.0-18.0) g/dL Hct (40.0-54.0) % MCV (80-100) fL MCH (27.0-34.0) pg MCHC (33.0-35.0) g/dL Plt Count (150-450) 10^3/uL Neut % (Auto) (42.2-75.2) % Lymph % (Auto) (20.5-50.1) % [place] % (Auto) (2-8) % Eos % (Auto) (1.0-3.0) % Baso % (Auto) (0.0-1.0) % PT (9.0-12.0) SEC INR (0.9-1.2) Sodium (136-145) mmol/L Potassium (3.5-5.1) mmol/L Chloride (98-107) mmol/L Carbon Dioxide (21-32) mmol/L Anion Gap (7-13) mEq/L BUN (7-18) mg/dL Creatinine (0.70-1.30) mg/dL Est Cr Clr Drug Dosing mL/min Estimated GFR (MDRD) BUN/Creatinine Ratio (No establ ref range) Glucose (74-99) mg/dL Lactic Acid 1.5 (0.4-2.0) mmol/L Calcium (8.5-10.1) mg/dL Total Bilirubin (0.2-1.0) mg/dL AST (15-37) U/L ALT (16-63) U/L Alkaline Phosphatase (46-116) U/L B-Natriuretic Peptide (0-100) pg/ml Total Protein (6.4-8.2) g/dL Albumin (3.4-5.0) g/dL Globulin Albumin/Globulin Ratio Meds: Medications Discontinued Medications Generic Name Dose Route Start Last Admin Trade Name Freq PRN Reason Stop Dose Admin Iopamidol 100 ml 01/23/20 22:53 01/23/20 23:02 Isovue-300 (61%) IVPUSH 01/23/20 22:54 100 ml ONETIME ONE Administration - Radiology Interpretation Free Text/Narrative:: CT chest/abdomen/pelvis with contrast: PROCEDURE INFORMATION: Exam: CT Chest With Contrast Exam date and time: 01/23/2020 11:02 PM Age: 74 years old Clinical indication: Other: Pain, wbc 12,000; Shortness of breath; Additional info: Large distended abdomen, hypoactive bs TECHNIQUE: Imaging protocol: Computed tomography of the chest with intravenous contrast. Radiation optimization: All CT scans at this facility use at least one of these dose optimization techniques: automated exposure control; mA and/or kV adjustment per patient size (includes targeted exams where dose is matched to clinical indication); or iterative reconstruction. Contrast material: [id number]; Contrast volume: 100 ml; Contrast route: INTRAVENOUS (IV); COMPARISON: CT Abdomen Pelvis w Cont 05/10/2019 8:48 AM FINDINGS: The lungs are essentially clear except for mild bibasilar scarring which is similar to the previous exam.. There is coronary artery calcification. The mediastinum is otherwise normal in appearance. There is no pleural fluid. There is left pleural thickening with calcification. This was present previously. There are vertebral compression deformities. IMPRESSION: No acute chest findings. Exam: CT Abdomen And Pelvis With Contrast Exam date and time: 01/23/2020 11:02 PM Age: 74 years old Clinical indication: Other: Pain, wbc 12,000; Shortness of breath; Additional info: Large distended abdomen, hypoactive bs TECHNIQUE: Imaging protocol: Computed tomography of the abdomen and pelvis with intravenous contrast. Radiation optimization: All CT scans at this facility use at least one of these dose optimization techniques: automated exposure control; mA and/or kV adjustment per patient size (includes targeted exams where dose is matched to clinical indication); or iterative reconstruction. Contrast material: [id number]; Contrast volume: 100 ml; Contrast route: INTRAVENOUS (IV); COMPARISON: CT Abdomen Pelvis w Cont 05/10/2019 8:48 AM FINDINGS: There are tiny liver cysts. These are similar to the prior exam. There is a splenic capsular calcification. The The liver, spleen, pancreas, adrenals and kidneys otherwise appear unremarkable. There are no abdominal or pelvic masses. There are no abnormal fluid collections. There is no free air identified. The appendix is identified and appears unremarkable. The bowel gas pattern is normal. The gallbladder appears unremarkable. The abdominal aorta is normal in caliber. There is a tiny left inguinal hernia containing fat. 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 This appears to have progressed from the prior exam. There are vertebral compression deformities. There is anasarca. This has progressed. IMPRESSION: No acute abdominal or pelvic findings except for increased anasarca. Thank you for allowing us to participate in the care of your patient. Dictated and Authenticated by: Nahun Gunderson MD 01/24/2020 12:06 AM Central Time ([place] & [place]) Chest xray: PROCEDURE INFORMATION: Exam: XR Chest, 1 View Exam date and time: 01/23/2020 10:27 PM Age: 74 years old Clinical indication: Other: In; Additional info: Chest pain TECHNIQUE: Imaging protocol: XR of the chest Views: 1 view. COMPARISON: CT Chest wo Cont 09/09/2019 12:38 PM FINDINGS: Lungs: Unremarkable. No consolidation. Pleural space: Bilateral minimal pleural thickening at the lung bases. Heart/Mediastinum: Minimal cardiomegaly. Bones/joints: Unremarkable. IMPRESSION: 1. Bilateral lower lobe pleural thickening. 2. Mild cardiomegaly. 3. No definite focal infiltrates to suggest pneumonia. Thank you for allowing us to participate in the care of your patient. Dictated and Authenticated by: Misael Alfredo MD 01/23/2020 10:48 PM Central Time ([place] & [place]) See radiologist report - Re-Assessments/Exams Free Text/Narrative Re-Assessment/Exam: 01/24/20 00:22 Discussed patient case with Dr. Elmore who agreed to accept the patient for observation admission. Departure - Departure Time of Disposition: 00:24 Disposition: Refer to Observation Condition: Poor Clinical Impression: Anasarca, Weakness, Lymphedema Diarrhea Qualifiers: Diarrhea type: unspecified type Qualified Code(s): R19.7 - Diarrhea, unspecified - Discharge Information *PRESCRIPTION DRUG MONITORING PROGRAM REVIEWED*: No *COPY OF PRESCRIPTION DRUG MONITORING REPORT IN PATIENT ARGELIA: No Forms: ED Department Discharge Sepsis Event Note (ED) - Evaluation Sepsis Screening Result: No Definite Risk - Focused Exam Vital Signs: Vital Signs Temp Pulse Resp BP Pulse Ox 01/23/20 21:36 98.4 F 97 16 130/50 L 99 - My Orders Last 24 Hours: My Active Orders 01/23/20 21:36 EKG Documentation Completion [RC] STAT 01/23/20 21:37 Blood Culture x2 Reflex Set [OM.PC] Stat 01/23/20 22:10 CULTURE BLOOD [BC] Stat 01/23/20 22:15 CULTURE BLOOD [BC] Stat 01/23/20 23:55 UA RFX TIM AND CULT IF INDIC [URIN] Stat 01/24/20 00:02 CULTURE STOOL [RM] Stat PARASITES, STOOL O&P [MREF] Stat 01/24/20 00:23 Admission Diagnosis [ADT] Stat Admission Status [Patient Status] [ADT] Routine - Assessment/Plan Last 24 Hours: My Active Orders 01/23/20 21:36 EKG Documentation Completion [RC] STAT 01/23/20 21:37 Blood Culture x2 Reflex Set [OM.PC] Stat 01/23/20 22:10 CULTURE BLOOD [BC] Stat 01/23/20 22:15 CULTURE BLOOD [BC] Stat 01/23/20 23:55 UA RFX TIM AND CULT IF INDIC [URIN] Stat 01/24/20 00:02 CULTURE STOOL [RM] Stat PARASITES, STOOL O&P [MREF] Stat 01/24/20 00:23 Admission Diagnosis [ADT] Stat Admission Status [Patient Status] [ADT] Routine
--- NOTE | 2020-01-24 00:07 | CT ---
PROCEDURE INFORMATION: Exam: CT Chest With Contrast Exam date and time: 01/23/2020 11:02 PM Age: 74 years old Clinical indication: Other: Pain, wbc 12,000; Shortness of breath; Additional info: Large distended abdomen, hypoactive bs TECHNIQUE: Imaging protocol: Computed tomography of the chest with intravenous contrast. Radiation optimization: All CT scans at this facility use at least one of these dose optimization techniques: automated exposure control; mA and/or kV adjustment per patient size (includes targeted exams where dose is matched to clinical indication); or iterative reconstruction. Contrast material: [id number]; Contrast volume: 100 ml; Contrast route: INTRAVENOUS (IV); COMPARISON: CT Abdomen Pelvis w Cont 05/10/2019 8:48 AM FINDINGS: The lungs are essentially clear except for mild bibasilar scarring which is similar to the previous exam.. There is coronary artery calcification. The mediastinum is otherwise normal in appearance. There is no pleural fluid. There is left pleural thickening with calcification. This was present previously. There are vertebral compression deformities. IMPRESSION: No acute chest findings. PROCEDURE INFORMATION: Exam: CT Abdomen And Pelvis With Contrast Exam date and time: 01/23/2020 11:02 PM Age: 74 years old Clinical indication: Other: Pain, wbc 12,000; Shortness of breath; Additional info: Large distended abdomen, hypoactive bs TECHNIQUE: Imaging protocol: Computed tomography of the abdomen and pelvis with intravenous contrast. Radiation optimization: All CT scans at this facility use at least one of these dose optimization techniques: automated exposure control; mA and/or kV adjustment per patient size (includes targeted exams where dose is matched to clinical indication); or iterative reconstruction. Contrast material: [id number]; Contrast volume: 100 ml; Contrast route: INTRAVENOUS (IV); COMPARISON: CT Abdomen Pelvis w Cont 05/10/2019 8:48 AM FINDINGS: There are tiny liver cysts. These are similar to the prior exam. There is a splenic capsular calcification. The The liver, spleen, pancreas, adrenals and kidneys otherwise appear unremarkable. There are no abdominal or pelvic masses. There are no abnormal fluid collections. There is no free air identified. The appendix is identified and appears unremarkable. The bowel gas pattern is normal. The gallbladder appears unremarkable. The abdominal aorta is normal in caliber. There is a tiny left inguinal hernia containing fat. 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 This appears to have progressed from the prior exam. There are vertebral compression deformities. There is anasarca. This has progressed. IMPRESSION: No acute abdominal or pelvic findings except for increased anasarca.
[2020-01-24] MEDS ORDERED: Ondansetron 4 MG/2 ML SDV IVPUSH PRN (01:07)
[2020-01-24] MEDS ORDERED: Magnesium Hydroxide 400 MG/5 ML Susp 30 ML Cup PO PRN (01:07)
--- NOTE | 2020-01-24 01:17 | PCM.HP ---
H&P History of Present Illness - General Date of Service: 01/24/20 Admit Problem/Dx: Admission Diagnosis/Problem Admission Diagnosis/Problem Weakness Source of Information: Patient History Limitations: Reports: No Limitations - History of Present Illness Initial Comments - Free Text/Narative: Ryan is a 74-year-old male resident of [facility] brought to the ED for evaluation of increasing leg swelling, pain and redness, abdominal fullness that has been going on for about one week. His past medical history includes prostate cancer with mets, follows with Dr. Marie. He was on chemotherapy but this is currently on hold. Other medical history include COPD, PAD, HTN. Patient reports for the past 1 week he has been having increased swelling to the lower extremities, redness and pain. He was recently started on Keflex and clindamycin for bilateral lower extremity cellulitis. He reports weeping lesions to the LE. Patient also reports he has significantly gained weight and feels fullness and distention to his abdomen. He reports his abdomen feels big and hard. He also reports poor appetite, poor oral intake resulting in increasing weakness. He denies fever, chills. He has no abdominal pain, nausea, vomiting. He denies chest pain, shortness of breath, cough. He denies orthopnea, PND. He notes passing loose stools that started yesterday. Stool is loose with no mucoid or blood. He denies melena, hematemesis, hematochezia. He has had a loose bowel movement today. As per chart report patient was previously on 60 mg Lasix twice daily but this was recently decreased to 20 mg daily. In the ED vitals were unremarkable. Labs significant for WBC to 12.1. Remainder of labs essentially unremarkable. Chest x-ray was negative for infilt rate. CT chest, abdomen and pelvis was negative for acute process. It showed anasarca. Admission was requested for further management. Onset of Symptoms: Reports: Gradual Duration of Symptoms: Reports: Day(s): Location: Reports: Abdomen Quality: Reports: Dull Improves with: Reports: None Worsens with: Reports: None Associated Symptoms: Reports: Loss of Appetite, Malaise, Weakness - Related Data Allergies/Adverse Reactions: Allergies Allergy/AdvReac Type Severity Reaction Status Date / Time No Known Allergies Allergy Verified 01/23/20 22:18 Home Medications: Home Meds Bimatoprost [LUMIGAN 0.01% Ophth Soln] 1 drop EYEBOTH DAILY 10/10/14 [History] Acetaminophen [Tylenol] 650 mg PO Q4HR PRN 04/26/19 [History] Aspirin [Ecotrin EC] 81 mg PO DAILY 04/26/19 [History] Brimonidine [Alphagan 0.2% Ophth Soln] 1 drop EYEBOTH BID 04/26/19 [History] Clopidogrel [Plavix] 75 mg PO DAILY 04/26/19 [History] Lutein/Minerals/Vit A,C & E [I-Alexandra] 1 tab PO DAILY 04/26/19 [History] Naftifine HCl [Naftin] 1 applic TOP DAILY 04/26/19 [History] Tamsulosin HCl [Flomax] 0.4 mg PO DAILY 04/26/19 [History] atorvaSTATin Calcium [Lipitor] 40 mg PO DAILY 04/26/19 [History] lisinopriL [Zestril] 10 mg PO DAILY 04/26/19 [History] Albuterol/Ipratropium [DuoNeb 3.0-0.5 MG/3 ML] 3 ml NEB Q4HRRT PRN #60 neb 05/01/19 [Rx] Budesonide [Pulmicort] 0.5 mg IH BID #60 neb 05/01/19 [Rx] Formoterol Fumarate [Perforomist] 20 mcg IH BID #60 units 05/01/19 [Rx] Furosemide [Lasix] 60 mg PO BID 01/23/20 [History] Acetaminophen [Tylenol] 650 mg PO BID 01/24/20 [History] Albuterol/Ipratropium [DuoNeb 3.0-0.5 MG/3 ML] 3 ml NEB TID 01/24/20 [History] Calcium Carbonate/Vitamin D3 [Calcium 600-Vit D3 800 [place]] 1 tab PO BIDMEALS 01/24/20 [History] Clindamycin HCl 300 mg PO TID 01/24/20 [History] Cyanocobalamin (Vitamin B12) [Vitamin B12] 1,000 mcg PO DAILY 01/24/20 [History] Famotidine [Pepcid] 20 mg PO BID 01/24/20 [History] Fluconazole [Diflucan] 300 mg PO DAILY 01/24/20 [History] Hydrocodone/Acetaminophen [Hydrocodone-Acetamin 5-325 mg] 1 each PO Q8H PRN 01/24/20 [History] Magnesium Hydroxide [Milk of Magnesia] 30 ml PO ASDIRECTED PRN 01/24/20 [History] Potassium Chloride 20 meq PO BID 01/24/20 [History] Tiotropium [place] [Spiriva Respimat] 2 puff INH DAILY 01/24/20 [History] cephALEXin [Keflex] 500 mg PO TID 01/24/20 [History] Past Medical History HEENT History: Reports: Hard of Hearing, Impaired Vision Other HEENT History: UPPER AND LOWER DENTURES Cardiovascular History: Reports: Hypertension, Other (See Below) Other Cardiovascular History: ESSENTIAL HYPERTENSION. Silk Rodes Procedure on February 26. PERIPHRAL ARTERY DISEASE Respiratory History: Reports: COPD, SOB Other Gastrointestinal History: FOOD IMPACTION OF ESOPHAGUS Genitourinary History: Reports: Prostate Disorder Other Genitourinary History: URETHRAL STRICTURE Other Musculoskeletal History: DIASTASIS RECTI Neurological History: Reports: CVA Psychiatric History: Reports: Panic Attack Other Psychiatric History: hx of tobacco abuse, alcohol abuse. panic attack after father's Endocrine/Metabolic History: Reports: Obesity/BMI 30+, Osteoporosis Hematologic History: Reports: Anemia Immunologic History: Reports: None Oncologic (Cancer) History: Reports: Bone, Prostate Dermatologic History: Reports: Venous Stasis Dermatitis - Past Surgical History HEENT Surgical History: Reports: Cataract Surgery Other HEENT Surgeries/Procedures: blind in left eye, macular degeneration Cardiovascular Surgical History: Reports: Carotid Stents Other Cardiovascular Surgeries/Procedures: left side carotid stent GI Surgical History: Reports: EGD, Hernia Repair/Other Male Surgical History: Reports: Prostate Biopsy Other Male Surgeries/Procedures: Dilitation of urethra due to scar tissue. Social & Family History - Family History Family Medical History: Noncontributory - Tobacco Use Smoking Status *Q: Former Smoker Used Tobacco, but Quit: Yes Month/Year Tobacco Last Used: - Caffeine Use Caffeine Use: Reports: Coffee - Recreational Drug Use Recreational Drug Use: No - Living Situation & Occupation Living situation: Reports: Single, Alone Occupation: Retired H&P Review of Systems - Review of Systems: Review Of Systems: See Below General: Reports: Malaise, Weakness, Fatigue, Decreased Appetite, Weight Gain HEENT: Reports: No Symptoms Pulmonary: Reports: No Symptoms Cardiovascular: Reports: No Symptoms Gastrointestinal: Reports: Abdominal Pain, Diarrhea, Distension Genitourinary: Reports: No Symptoms Musculoskeletal: Reports: Back Pain Skin: Reports: Other (Weeping skin to lower extremities) Psychiatric: Reports: No Symptoms Neurological: Reports: No Symptoms Hematologic/Lymphatic: Reports: No Symptoms Immunologic: Reports: No Symptoms Exam - Exam Exam: See Below - Vital Signs Vital Signs: Last Vital Signs Temp 98.4 F 01/23/20 21:36 Pulse 97 01/23/20 21:36 Resp 16 01/23/20 21:36 BP 130/50 L 01/23/20 21:36 Pulse Ox 99 01/23/20 21:36 Weight: 243 lb - Exam Quality Assessment: Supplemental Oxygen, DVT Prophylaxis General: Alert, Oriented, Lethargic HEENT: PERRLA, Hearing Intact, Mucosa Moist & [place], Nares Patent, Normal Nasal Septum, Posterior Pharynx Clear, Conjunctiva Clear, EOMI, EACs Clear, TMs Clear Neck: Supple, Trachea Midline, 2 Lungs: Clear to Auscultation, Normal Respiratory Effort Cardiovascular: Regular Rate, Regular Rhythm GI/Abdominal Exam: Non-Tender, Distended, Other (Male) Exam: Other (Excoriation lesions to inguinal areas) Rectal (Males) Exam: Deferred Back Exam: Normal Inspection, Full Range of Motion, NT Extremities: Pedal Edema, Leg Pain, Increased Warmth, Redness Skin: Other (Lower extremity skin nose moist) Neurological: Cranial Nerves Intact, Reflexes Equal Bilateral Neuro Extensive - Mental Status: Alert, Oriented x3, Normal Mood/Affect, Normal Cognition Neuro Extensive - Motor, Sensory, Reflexes: CN II-XII Intact, Normal Gait, Normal Reflexes - Patient Data Lab Results Last 24 hrs: Laboratory Results - last 24 hr 01/23/20 01/23/20 01/23/20 Range/Units 22:10 22:10 22:10 WBC 12.0 H (5.0-10.0) 10^3/uL RBC 2.98 L (4.6-6.2) 10^6/uL Hgb 9.6 L D (14.0-18.0) g/dL Hct 29.9 L (40.0-54.0) % MCV 100.3 H (80-100) fL MCH 32.2 (27.0-34.0) pg MCHC 32.1 L (33.0-35.0) g/dL Plt Count 238 (150-450) 10^3/uL Neut % (Auto) 67.9 (42.2-75.2) % Lymph % (Auto) 21.3 (20.5-50.1) % [place] % (Auto) 8.0 (2-8) % Eos % (Auto) 2.4 (1.0-3.0) % Baso % (Auto) 0.4 (0.0-1.0) % PT 10.1 (9.0-12.0) SEC INR 1.1 (0.9-1.2) Sodium 133 L (136-145) mmol/L Potassium 4.2 (3.5-5.1) mmol/L Chloride 96 L (98-107) mmol/L Carbon Dioxide 29 (21-32) mmol/L Anion Gap 12.2 (7-13) mEq/L BUN 35 H (7-18) mg/dL Creatinine 1.16 (0.70-1.30) mg/dL Est Cr Clr Drug Dosing 61.31 mL/min Estimated GFR (MDRD) > 60 BUN/Creatinine Ratio 30.2 (No establ ref range) Glucose 117 H (74-99) mg/dL Lactic Acid (0.4-2.0) mmol/L Calcium 9.4 (8.5-10.1) mg/dL Total Bilirubin 0.6 (0.2-1.0) mg/dL AST 28 (15-37) U/L ALT 41 (16-63) U/L Alkaline Phosphatase 85 (46-116) U/L B-Natriuretic Peptide 90 (0-100) pg/ml Total Protein 6.5 (6.4-8.2) g/dL Albumin 2.2 L (3.4-5.0) g/dL Globulin 4.3 Albumin/Globulin Ratio 0.51 01/23/20 Range/Units 22:10 WBC (5.0-10.0) 10^3/uL RBC (4.6-6.2) 10^6/uL Hgb (14.0-18.0) g/dL Hct (40.0-54.0) % MCV (80-100) fL MCH (27.0-34.0) pg MCHC (33.0-35.0) g/dL Plt Count (150-450) 10^3/uL Neut % (Auto) (42.2-75.2) % Lymph % (Auto) (20.5-50.1) % [place] % (Auto) (2-8) % Eos % (Auto) (1.0-3.0) % Baso % (Auto) (0.0-1.0) % PT (9.0-12.0) SEC INR (0.9-1.2) Sodium (136-145) mmol/L Potassium (3.5-5.1) mmol/L Chloride (98-107) mmol/L Carbon Dioxide (21-32) mmol/L Anion Gap (7-13) mEq/L BUN (7-18) mg/dL Creatinine (0.70-1.30) mg/dL Est Cr Clr Drug Dosing mL/min Estimated GFR (MDRD) BUN/Creatinine Ratio (No establ ref range) Glucose (74-99) mg/dL Lactic Acid 1.5 (0.4-2.0) mmol/L Calcium (8.5-10.1) mg/dL Total Bilirubin (0.2-1.0) mg/dL AST (15-37) U/L ALT (16-63) U/L Alkaline Phosphatase (46-116) U/L B-Natriuretic Peptide (0-100) pg/ml Total Protein (6.4-8.2) g/dL Albumin (3.4-5.0) g/dL Globulin Albumin/Globulin Ratio Result Diagrams: 01/24/20 05:50 01/23/20 22:10 Tim Results Last 24 hrs: Microbiology 01/23/20 22:15 Anaerobic Blood Culture - Final Blood - Venous - Lab Draw 01/23/20 22:10 Anaerobic Blood Culture - Final Blood - Venous - Problem List (1) Anasarca SNOMED Code(s): 865965044, 479790356 ICD Code: R60.1 - GENERALIZED EDEMA Status: Acute Current Visit: No (2) Diarrhea SNOMED Code(s): 57678836 ICD Code: R19.7 - DIARRHEA, UNSPECIFIED Status: Acute Current Visit: No Qualifiers: Diarrhea type: unspecified type Qualified Code(s): R19.7 - Diarrhea, unspecified (3) Anasarca SNOMED Code(s): 094180817, 689625892 ICD Code: R60.1 - GENERALIZED EDEMA Status: Acute Current Visit: Yes (4) Chronic anemia SNOMED Code(s): 324547319 ICD Code: D64.9 - ANEMIA, UNSPECIFIED Status: Acute Current Visit: Yes (5) Hyperphosphatemia SNOMED Code(s): 41186888 ICD Code: E83.39 - OTHER DISORDERS OF PHOSPHORUS METABOLISM Status: Acute Current Visit: Yes (6) Hyponatremia SNOMED Code(s): 59123304 ICD Code: E87.1 - HYPO-OSMOLALITY AND HYPONATREMIA Status: Acute Current Visit: No (7) Obesity SNOMED Code(s): 343361696, 293986185 ICD Code: E66.9 - OBESITY, UNSPECIFIED Status: Acute Current Visit: Yes Problem List Initiated/Reviewed/Updated: Yes Orders Last 24hrs: Active Orders 24 hr Category Date Time Status Admission Diagnosis [ADT] Stat ADT 01/24/20 00:23 Ordered Admission Status [Patient Status] [ADT] Routine ADT 01/24/20 00:23 Active Ambulate [RC] ASDIRECTED Care 01/24/20 01:07 Ordered Blood Glucose Check, Bedside [RC] QIDACANDBED Care 01/24/20 01:07 Ordered EKG Documentation Completion [RC] STAT Care 01/23/20 21:36 Active Height and Weight [RC] DAILY Care 01/24/20 01:07 Ordered Intake and Output [RC] QSHIFT Care 01/24/20 01:09 Ordered Notify Provider Vital Signs [RC] ASDIRECTED Care 01/24/20 01:09 Ordered Oxygen Therapy [RC] PRN Care 01/24/20 01:07 Ordered VTE/DVT Education [RC] PER UNIT ROUTINE Care 01/24/20 01:07 Ordered Vital Signs [RC] Q4H Care 01/24/20 01:07 Ordered OT Evaluation and Treatment [CONS] Routine Cons 01/24/20 01:07 Ordered PT Evaluation and Treatment [CONS] Routine Cons 01/24/20 01:07 Ordered Heart Healthy Diet [DIET] Diet 01/24/20 Breakfast Ordered CBC WITH AUTO DIFF [HEME] DAILY Lab 01/24/20 07:00 Ordered CBC WITH AUTO DIFF [HEME] DAILY Lab 01/25/20 07:00 Ordered CBC WITH AUTO DIFF [HEME] DAILY Lab 01/26/20 07:00 Ordered CORONAVIRUS COVID-19 RAPID [MOLEC] Routine Lab 01/24/20 00:30 Received CULTURE BLOOD [BC] Stat Lab 01/23/20 22:10 Results CULTURE BLOOD [BC] Stat Lab 01/23/20 22:15 Results CULTURE STOOL [RM] Stat Lab 01/24/20 00:02 Ordered MAGNESIUM [CHEM] Routine Lab 01/24/20 01:07 Ordered PARASITES, STOOL O&P [MREF] Stat Lab 01/24/20 00:02 Ordered PHOSPHORUS [CHEM] Routine Lab 01/24/20 01:07 Ordered UA RFX TIM AND CULT IF INDIC [URIN] Stat Lab 01/23/20 23:55 Ordered Acetaminophen [TylenoL] Med 01/24/20 01:07 Ordered 650 mg PO Q4H PRN Heparin Sodium Med 01/24/20 09:00 Ordered 5,000 units SUBCUT Q12HR Magnesium Hydroxide [Milk of Magnesia] Med 01/24/20 01:07 Ordered 30 ml PO Q12H PRN Ondansetron [Zofran] Med 01/24/20 01:07 Ordered 4 mg IVPUSH Q6H PRN Blood Culture x2 Reflex Set [OM.PC] Stat Oth 01/23/20 21:37 Ordered Resuscitation Status Routine Resus Stat 01/24/20 01:07 Ordered Assessment/Plan Comment:: #Bilateral lower extremity cellulitis Patient brought to the ED for evaluation of increasing swelling, redness, pain to lower extremities with weeping lesion He was on Keflex and clindamycin Admit to medical floor Continue Keflex Add doxycycline Wound cultures #Anasarca This could be due to ongoing malignancy IV Lasix 60 mg bid Fluid restriction Daily weight #Out hyponatremia This is due to fluid overload Sodium 133 Continue diuretics Follow-up #Hyperphosphatemia Follow-up #COPD Exacerbation Tinea breathing treatment #Chronic back pain Home medication #Prostate Ca Was on chemotherapy currently on hold. Follows with Dr. Marie #Poor appetite We will start patient on Remeron #Physical debility and weakness Physical therapy and Occupational Therapy #High discussion with patient regarding CODE STATUS. Wants to remain full code at this time
[2020-01-24] MEDS ORDERED: Albuterol/Ipratropium 3.0-0.5 MG/3 ML Neb Soln NEB PRN (01:18)
[2020-01-24] MEDS ORDERED: Sodium Chloride 0.9% 10 ML Syringe FLUSH PRN (03:49)
[2020-01-24] MEDS ORDERED: Furosemide 40 MG/4 ML VIAL IVPUSH SCH (08:00)
[2020-01-24] MEDS: Budesonide 0.5 MG/2 ML Neb Susp NEB SCH ×2 (08:00→18:51)
[2020-01-24] MEDS ORDERED: Tamsulosin 0.4 MG Cap.ER PO SCH ×2 (09:00→21:00)
[2020-01-24] MEDS ORDERED: CLINDAMYCIN HCL 300 MG PO SCH (09:00)
[2020-01-24] MEDS ORDERED: Lisinopril 10 MG Tab PO SCH (09:00)
[2020-01-24] MEDS ORDERED: Famotidine 20 MG Tab PO SCH (09:00)
[2020-01-24] MEDS ORDERED: FORMOTEROL FUMARATE 20 MCG IH SCH (09:00)
[2020-01-24] MEDS: Furosemide 40 MG/4 ML VIAL IVPUSH SCH ×3 (09:14→14:50)
[2020-01-24] MEDS: atorvaSTATin 20 MG Tab PO SCH (09:15)
[2020-01-24] MEDS: Aspirin 81 MG Tab.EC PO SCH (09:15)
[2020-01-24] MEDS: Cyanocobalamin (Vitamin B12) 1,000 MCG Tab PO SCH (09:15)
[2020-01-24] MEDS: Cephalexin 500 MG Cap PO SCH ×3 (09:15→21:10)
[2020-01-24] MEDS: Calcium Carbonate/Vitamin D3 1250 MG-200 Unit Tab PO SCH ×2 (09:16→21:10)
[2020-01-24] MEDS: Clopidogrel 75 MG Tab PO SCH (09:17)
[2020-01-24] MEDS: Doxycycline Monohydrate 100 MG Cap PO SCH ×2 (09:17→21:10)
[2020-01-24] MEDS: Heparin Sodium 5,000 Units/ML Vial SUBCUT SCH ×2 (09:17→21:08)
[2020-01-24] MEDS: Acetaminophen 325 MG Tab PO PRN ×2 (09:41→18:52)
[2020-01-24] MEDS ORDERED: Budesonide 0.5 MG/2 ML Neb Susp ONE (09:41)
[2020-01-24] MEDS: Famotidine 20 MG Tab PO SCH ×2 (09:41→21:10)
[2020-01-24] MEDS: Lutein/Minerals/Vit A,C & E Tab PO SCH (10:55)
[2020-01-24] MEDS: Acetaminophen/HYDROcodone 325-5 MG Tab PO PRN ×2 (10:56→18:53)
--- NOTE | 2020-01-24 13:15 | US ---
EXAMINATION: Venous Doppler Lwr Ext Bi SEX: Male AGE: 74 years CLINICAL HISTORY: 74-year-old male with bilateral lower extremity edema and calf tenderness. Rule out DVT this obese patient at Hospital bed rest with shortness of breath. Interpretation: Negative exam. No sign of intraluminal echogenic thrombus and normal compressibility deep veins of the groin, thigh, knee and calf both legs. No DVT. Satisfactory augmentation venous waveforms demonstrated respectively in the popliteal and proximal femoral veins both legs. No sign of Borden's cyst or hematoma (subcutaneous edema bilaterally).
[2020-01-24] MEDS: Nystatin Topical Powder 30 GM Bottle TOP SCH ×2 (14:40→21:11)
[2020-01-24] MEDS ORDERED: Sodium Chloride 0.9% 250 ML IV ONE ×2 (14:49→16:46)
[2020-01-24] MEDS ORDERED: Sodium Chloride 0.9% 250 ML IV SCH (16:45)
[2020-01-24] MEDS ORDERED: Latanoprost 0.005% Ophth Soln 2.5 ML Bottle EYEBOTH SCH (21:00)
[2020-01-24] MEDS ORDERED: Mirtazapine 15 MG Tab PO SCH (21:00)
[2020-01-24] MEDS: Brimonidine 0.15% Ophth Soln 5 ML Bottle EYEBOTH SCH (21:09)
[2020-01-24] MEDS: Potassium Chloride 10 MEQ Tab.ER PO SCH (21:10)
[2020-01-25] MEDS: Acetaminophen 325 MG Tab PO PRN (03:16)
[2020-01-25] MEDS ORDERED: Albumin 25% 12.5 GM/50 ML BAG IV ONE ×3 (03:40→05:00)
[2020-01-25] MEDS ORDERED: Midodrine 2.5 MG Tab PO SCH (04:00)
[2020-01-25 06:51] LABS: ANION GAP 16.6 mEq/L (7-13)
[2020-01-25] MEDS: Budesonide 0.5 MG/2 ML Neb Susp NEB SCH (07:02)
[2020-01-25] MEDS ORDERED: Furosemide 40 MG/4 ML VIAL IVPUSH SCH (08:00)
[2020-01-25] MEDS ORDERED: Sodium Chloride 0.9% 250 ML IV STA (08:04)
[2020-01-25] MEDS ORDERED: NAFTIFINE HCL TOP SCH (09:00)
[2020-01-25] MEDS ORDERED: Tiotropium Inhaler 18 MCG Inhalation Powder Cap Kit of 5 INH SCH (09:00)
[2020-01-25 09:03] VITALS: BP 117/43; PULSE 96
[2020-01-25] MEDS: Calcium Carbonate/Vitamin D3 1250 MG-200 Unit Tab PO SCH (09:06)
[2020-01-25] MEDS: Heparin Sodium 5,000 Units/ML Vial SUBCUT SCH (09:06)
[2020-01-25] MEDS: Lutein/Minerals/Vit A,C & E Tab PO SCH (09:06)
[2020-01-25] MEDS: Doxycycline Monohydrate 100 MG Cap PO SCH (09:06)
[2020-01-25] MEDS: Cephalexin 500 MG Cap PO SCH (09:07)
[2020-01-25] MEDS: Cyanocobalamin (Vitamin B12) 1,000 MCG Tab PO SCH (09:07)
[2020-01-25] MEDS: Potassium Chloride 10 MEQ Tab.ER PO SCH (09:07)
[2020-01-25] MEDS: Aspirin 81 MG Tab.EC PO SCH (09:07)
[2020-01-25] MEDS: Clopidogrel 75 MG Tab PO SCH (09:07)
[2020-01-25] MEDS: atorvaSTATin 20 MG Tab PO SCH (09:08)
[2020-01-25] MEDS: Famotidine 20 MG Tab PO SCH (09:08)
[2020-01-25] MEDS: Brimonidine 0.15% Ophth Soln 5 ML Bottle EYEBOTH SCH (09:12)
[2020-01-25] MEDS: Nystatin Topical Powder 30 GM Bottle TOP SCH (09:12)
--- NOTE | 2020-01-25 10:24 | PCM.DCSUM1 ---
Discharge Summary - Hospital Course HPI Initial Comments: Ryan is a 74-year-old male resident of [facility] brought to the ED for evaluation of increasing leg swelling, pain and redness, abdominal fullness that has been going on for about one week. His past medical history includes prostate cancer with mets, follows with Dr. Marie. He was on chemotherapy but this is currently on hold. Other medical history include COPD, PAD, HTN. Patient reported increased swelling, pain and redness to lower extremities alongside increased fullness to abdominal for the past 1 week. He was admitted for anasarca, bilateral lower extremity cellulitis. Patient was on clindamycin and Keflex prior to admission. CT chest, abdomen and pelvis done on admit was negative for acute findings. Kidney function was within normal limits on admit. Patient was started on IV Lasix. Overnight his blood pressure remained soft. He had episode of hypotension and received a total of 750 mL bolus of NS. Blood pressure remained low normal. He received 2 doses of albumin. Urine output overnight decreased significantly. Had only 100 cc overnight. BMP this morning showed creatinine trending up to 2.4, BUN 40. Blood pressure remains soft, 117/40. WBC trended up to 14 this morning. Renal ultrasound was ordered. Plan to start patient on broad-spectrum antibiotics. Given hypotension, TRINI and unable to diurese patient decision was made to transfer patient to higher level of care for further evaluation and management. I spoke with Dr. Phillips who agreed to accept patient. Patient also reported constipation this morning. He reported diarrhea during admission. Bowel regimen was started this morning. Diagnosis: Stroke: No - Discharge Data Discharge Date: 01/25/20 Discharge Disposition: DC/Tfer to Acute Hospital 02 Condition: Good - Referral to Home Health Primary Care Physician: PCP None - Discharge Diagnosis/Problem(s) (1) Anasarca SNOMED Code(s): 191069263, 594970489 ICD Code: R60.1 - GENERALIZED EDEMA Status: Acute Current Visit: No (2) Diarrhea SNOMED Code(s): 48813453 ICD Code: R19.7 - DIARRHEA, UNSPECIFIED Status: Acute Current Visit: No Qualifiers: Diarrhea type: unspecified type Qualified Code(s): R19.7 - Diarrhea, unspecified (3) Anasarca SNOMED Code(s): 135518544, 863632765 ICD Code: R60.1 - GENERALIZED EDEMA Status: Acute Current Visit: Yes (4) Chronic anemia SNOMED Code(s): 095022385 ICD Code: D64.9 - ANEMIA, UNSPECIFIED Status: Acute Current Visit: Yes (5) Hyperphosphatemia SNOMED Code(s): 97866747 ICD Code: E83.39 - OTHER DISORDERS OF PHOSPHORUS METABOLISM Status: Acute Current Visit: Yes (6) Hyponatremia SNOMED Code(s): 89216426 ICD Code: E87.1 - HYPO-OSMOLALITY AND HYPONATREMIA Status: Acute Current Visit: No (7) Obesity SNOMED Code(s): 261814245, 635464181 ICD Code: E66.9 - OBESITY, UNSPECIFIED Status: Acute Current Visit: Yes - Patient Summary/Data Consults: Consultations 01/24/20 01:07 OT Evaluation and Treatment [CONS] Routine PT Evaluation and Treatment [CONS] Routine - Discharge Plan *PRESCRIPTION DRUG MONITORING PROGRAM REVIEWED*: No *COPY OF PRESCRIPTION DRUG MONITORING REPORT IN PATIENT ARGELIA: No Home Medications: Home Meds Bimatoprost [LUMIGAN 0.01% Ophth Soln] 1 drop EYEBOTH DAILY 10/10/14 [History] Acetaminophen [Tylenol] 650 mg PO Q4HR PRN 04/26/19 [History] Aspirin [Ecotrin EC] 81 mg PO DAILY 04/26/19 [History] Brimonidine [Alphagan 0.2% Ophth Soln] 1 drop EYEBOTH BID 04/26/19 [History] Clopidogrel [Plavix] 75 mg PO DAILY 04/26/19 [History] Lutein/Minerals/Vit A,C & E [I-Alexandra] 1 tab PO DAILY 04/26/19 [History] Naftifine HCl [Naftin] 1 applic TOP DAILY 04/26/19 [History] Tamsulosin HCl [Flomax] 0.4 mg PO DAILY 04/26/19 [History] atorvaSTATin Calcium [Lipitor] 40 mg PO DAILY 04/26/19 [History] Albuterol/Ipratropium [DuoNeb 3.0-0.5 MG/3 ML] 3 ml NEB Q4HRRT PRN #60 neb 05/01/19 [Rx] Budesonide [Pulmicort] 0.5 mg IH BID #60 neb 05/01/19 [Rx] Formoterol Fumarate [Perforomist] 20 mcg IH BID #60 units 05/01/19 [Rx] Acetaminophen [Tylenol] 650 mg PO BID 01/24/20 [History] Albuterol/Ipratropium [DuoNeb 3.0-0.5 MG/3 ML] 3 ml NEB TID 01/24/20 [History] Calcium Carbonate/Vitamin D3 [Calcium 600-Vit D3 800 Caplet] 1 tab PO BIDMEALS 01/24/20 [History] Cyanocobalamin (Vitamin B12) [Vitamin B12] 1,000 mcg PO DAILY 01/24/20 [History] Famotidine [Pepcid] 20 mg PO BID 01/24/20 [History] Fluconazole [Diflucan] 300 mg PO DAILY 01/24/20 [History] Hydrocodone/Acetaminophen [Hydrocodone-Acetamin 5-325 mg] 1 each PO Q8H PRN 01/24/20 [History] Magnesium Hydroxide [Milk of Magnesia] 30 ml PO ASDIRECTED PRN 01/24/20 [History] Potassium Chloride 20 meq PO BID 01/24/20 [History] Tiotropium [place] [Spiriva Respimat] 2 puff INH DAILY 01/24/20 [History] cephALEXin [Keflex] 500 mg PO TID 01/24/20 [History] - Discharge Summary/Plan Comment DC Time >30 min.: Yes - General Info Date of Service: 01/25/20 Admission Dx/Problem (Free Text: Admission Diagnosis/Problem Admission Diagnosis/Problem Anasarca/LE cellulitis/Weakness Functional Status: Reports: Pain Controlled - Review of Systems General: Reports: No Symptoms HEENT: Reports: No Symptoms Pulmonary: Reports: No Symptoms Cardiovascular: Reports: No Symptoms Gastrointestinal: Reports: No Symptoms Genitourinary: Reports: No Symptoms Musculoskeletal: Reports: No Symptoms Skin: Reports: No Symptoms Neurological: Reports: No Symptoms Psychiatric: Reports: No Symptoms - Patient Data Vitals - Most Recent: Last Vital Signs Temp 99.3 F 01/25/20 09:02 Pulse 96 01/25/20 09:02 Resp 22 H 01/25/20 09:02 BP 117/43 L 01/25/20 09:02 Pulse Ox 96 01/25/20 09:02 Weight - Most Recent: 245 lb 3.2 oz I&O - Last 24 hours: Intake & Output 01/24/20 01/25/20 01/25/20 22:59 06:59 14:59 Intake Total 200 Output Total 100 Balance 100 Lab Results - Last 24 hrs: Laboratory Results - last 24 hr 01/24/20 01/24/20 01/24/20 Range/Units 09:10 12:00 16:48 WBC (5.0-10.0) 10^3/uL RBC (4.6-6.2) 10^6/uL Hgb (14.0-18.0) g/dL Hct (40.0-54.0) % MCV (80-100) fL MCH (27.0-34.0) pg MCHC (33.0-35.0) g/dL Plt Count (150-450) 10^3/uL Neut % (Auto) (42.2-75.2) % Lymph % (Auto) (20.5-50.1) % Mathews % (Auto) (2-8) % Eos % (Auto) (1.0-3.0) % Baso % (Auto) (0.0-1.0) % Sodium (136-145) mmol/L Potassium (3.5-5.1) mmol/L Chloride (98-107) mmol/L Carbon Dioxide (21-32) mmol/L Anion Gap (7-13) mEq/L BUN (7-18) mg/dL Creatinine (0.70-1.30) mg/dL Est Cr Clr Drug Dosing mL/min Estimated GFR (MDRD) Glucose (74-99) mg/dL POC Glucose 104 121 H (83-110) mg/dl Calcium (8.5-10.1) mg/dL Phosphorus (2.6-4.7) mg/dL Magnesium (1.8-2.4) mg/dL Urine Color (YELLOW) Urine Appearance (CLEAR) Urine pH (5.0-9.0) Ur Specific [place] (1.005-1.030) Urine Protein (NEGATIVE) Urine Glucose (UA) (NEGATIVE) Urine Ketones (NEGATIVE) Urine Occult Blood (NEGATIVE) Urine Nitrite (NEGATIVE) Urine Bilirubin (NEGATIVE) Urine Urobilinogen (0.2-1.0) mg/dL Ur Leukocyte Esterase (NEGATIVE) SARS CoV-2 RNA Rapid AKUA Negative (NEGATIVE) 01/24/20 01/24/20 01/25/20 Range/Units 20:46 20:55 05:40 WBC 14.7 H (5.0-10.0) 10^3/uL RBC 2.54 L (4.6-6.2) 10^6/uL Hgb 8.1 L (14.0-18.0) g/dL Hct 26.3 L (40.0-54.0) % MCV 103.5 H (80-100) fL MCH 31.9 (27.0-34.0) pg MCHC 30.8 L (33.0-35.0) g/dL Plt Count 240 (150-450) 10^3/uL Neut % (Auto) 76.0 H (42.2-75.2) % Lymph % (Auto) 16.1 L (20.5-50.1) % Mathews % (Auto) 6.6 (2-8) % Eos % (Auto) 1.1 (1.0-3.0) % Baso % (Auto) 0.2 (0.0-1.0) % Sodium (136-145) mmol/L Potassium (3.5-5.1) mmol/L Chloride (98-107) mmol/L Carbon Dioxide (21-32) mmol/L Anion Gap (7-13) mEq/L BUN (7-18) mg/dL Creatinine (0.70-1.30) mg/dL Est Cr Clr Drug Dosing mL/min Estimated GFR (MDRD) Glucose (74-99) mg/dL POC Glucose 144 H (83-110) mg/dl Calcium (8.5-10.1) mg/dL Phosphorus (2.6-4.7) mg/dL Magnesium (1.8-2.4) mg/dL Urine Color Yellow (YELLOW) Urine Appearance Clear (CLEAR) Urine pH 5.0 (5.0-9.0) Ur Specific [place] 1.020 (1.005-1.030) Urine Protein Negative (NEGATIVE) Urine Glucose (UA) Negative (NEGATIVE) Urine Ketones Negative (NEGATIVE) Urine Occult Blood Negative (NEGATIVE) Urine Nitrite Negative (NEGATIVE) Urine Bilirubin Small H (NEGATIVE) Urine Urobilinogen 0.2 (0.2-1.0) mg/dL Ur Leukocyte Esterase Negative (NEGATIVE) SARS CoV-2 RNA Rapid AKUA (NEGATIVE) 01/25/20 01/25/20 Range/Units 05:40 07:59 WBC (5.0-10.0) 10^3/uL RBC (4.6-6.2) 10^6/uL Hgb (14.0-18.0) g/dL Hct (40.0-54.0) % MCV (80-100) fL MCH (27.0-34.0) pg MCHC (33.0-35.0) g/dL Plt Count (150-450) 10^3/uL Neut % (Auto) (42.2-75.2) % Lymph % (Auto) (20.5-50.1) % Mathews % (Auto) (2-8) % Eos % (Auto) (1.0-3.0) % Baso % (Auto) (0.0-1.0) % Sodium 136 (136-145) mmol/L Potassium 4.6 (3.5-5.1) mmol/L Chloride 98 (98-107) mmol/L Carbon Dioxide 26 (21-32) mmol/L Anion Gap 16.6 H (7-13) mEq/L BUN 40 H (7-18) mg/dL Creatinine 2.36 H D (0.70-1.30) mg/dL Est Cr Clr Drug Dosing 30.13 mL/min Estimated GFR (MDRD) 27 Glucose 103 H (74-99) mg/dL POC Glucose 113 H (83-110) mg/dl Calcium 9.0 (8.5-10.1) mg/dL Phosphorus 6.3 H (2.6-4.7) mg/dL Magnesium 2.5 H (1.8-2.4) mg/dL Urine Color (YELLOW) Urine Appearance (CLEAR) Urine pH (5.0-9.0) Ur Specific [place] (1.005-1.030) Urine Protein (NEGATIVE) Urine Glucose (UA) (NEGATIVE) Urine Ketones (NEGATIVE) Urine Occult Blood (NEGATIVE) Urine Nitrite (NEGATIVE) Urine Bilirubin (NEGATIVE) Urine Urobilinogen (0.2-1.0) mg/dL Ur Leukocyte Esterase (NEGATIVE) SARS CoV-2 RNA Rapid AKUA (NEGATIVE) TIM Results - Last 24 hrs: Microbiology 01/23/20 22:15 Aerobic Blood Culture - Preliminary Blood - Venous - Lab Draw NO GROWTH AFTER 1 DAY Anaerobic Blood Culture - Final 01/23/20 22:10 Aerobic Blood Culture - Preliminary Blood - Venous NO GROWTH AFTER 1 DAY Anaerobic Blood Culture - Final Med Orders - Current: Current Medications Acetaminophen (Tylenol) 650 mg PO Q4H PRN PRN Reason: Pain (Mild 1-3)/fever Last Admin: 01/25/20 03:16 Dose: 650 mg Documented by: Hydrocodone Bitart/Acetaminophen ([place] 325-5 Mg) 1 tab PO Q8H PRN PRN Reason: Pain (moderate 4-6) Last Admin: 01/24/20 18:53 Dose: 1 tab Documented by: Albuterol/Ipratropium (Duoneb 3.0-0.5 Mg/3 Ml) 3 ml NEB Q4HRRT PRN PRN Reason: Shortness of Breath Aspirin (Halfprin) 81 mg PO DAILY [facility] Last Admin: 01/25/20 09:07 Dose: 81 mg Documented by: Atorvastatin Calcium (Lipitor) 40 mg PO DAILY [facility] Last Admin: 01/25/20 09:08 Dose: 40 mg Documented by: Brimonidine Tartrate (Alphagan P 0.15% Oph Sol) 1 ml EYEBOTH BID [facility] Last Admin: 01/25/20 09:12 Dose: 1 drop Documented by: Budesonide (Pulmicort) 0.5 mg NEB BIDRT [facility] Last Admin: 01/25/20 07:02 Dose: 0.5 mg Documented by: Calcium Carbonate (Calcium Carbonate/Vitamin D 1250 Mg-200 Unit) 1 tab PO BID [facility] Last Admin: 01/25/20 09:06 Dose: 1 tab Documented by: Clopidogrel Bisulfate (Plavix) 75 mg PO DAILY [facility] Last Admin: 01/25/20 09:07 Dose: 75 mg Documented by: Cyanocobalamin (Vitamin B12) 1,000 mcg PO DAILY [facility] Last Admin: 01/25/20 09:07 Dose: 1,000 mcg Documented by: Famotidine (Pepcid) 20 mg PO BID [facility] Last Admin: 01/25/20 09:08 Dose: 20 mg Documented by: Furosemide (Lasix) 40 mg IVPUSH BIDDIURETIC [facility] Last Admin: 01/25/20 08:32 Dose: Not Given Documented by: Heparin Sodium (Porcine) (Heparin Sodium) 5,000 units SUBCUT Q12HR [facility] Last Admin: 01/25/20 09:06 Dose: 5,000 units Documented by: Piperacillin Sod/Tazobactam (Sod 2.25 gm/ Sodium Chloride) 50 mls @ 100 mls/hr IV Q6HR [facility] Lactulose (Cephulac) 20 gm PO TID [facility] Latanoprost (Xalatan 0.005% Ophth Soln) 0 ml EYEBOTH BEDTIME [facility] Last Admin: 01/24/20 21:20 Dose: 1 drop Documented by: Magnesium Hydroxide (Milk Of Magnesia) 30 ml PO Q12H PRN PRN Reason: Constipation Midodrine (Midodrine) 10 mg PO Q8H [facility] Last Admin: 01/25/20 04:16 Dose: 10 mg Documented by: Mirtazapine (Remeron) 15 mg PO BEDTIME [facility] Last Admin: 01/24/20 21:10 Dose: 15 mg Documented by: Multivitamins/Minerals (I-Alexandra) 1 each PO DAILY [facility] Last Admin: 01/25/20 09:06 Dose: 1 each Documented by: Nystatin (Nystop) 0 gm TOP TID [facility] Last Admin: 01/25/20 09:12 Dose: 1 applic Documented by: Ondansetron HCl (Zofran) 4 mg IVPUSH Q6H PRN PRN Reason: Nausea/Vomiting Potassium Chloride (Klor-Con 10) 20 meq PO BID [facility] Last Admin: 01/25/20 09:07 Dose: 20 meq Documented by: Sodium Chloride (Saline Flush) 10 ml FLUSH ASDIRECTED PRN PRN Reason: Keep Vein Open Tamsulosin HCl (Flomax) 0.4 mg PO BEDTIME [facility] Last Admin: 01/24/20 21:09 Dose: 0.4 mg Documented by: Tiotropium [place] (Spiriva Handihaler) 18 mcg INH DAILY [facility] Last Admin: 01/25/20 09:08 Dose: 18 mcg Documented by: Discontinued Medications Budesonide (Pulmicort) Confirm Administered Dose 0.5 mg .ROUTE .STK-MED ONE Stop: 01/24/20 09:42 Last Admin: 01/24/20 09:54 Dose: 0.5 mg Documented by: Cephalexin (Keflex) 500 mg PO TID [facility] Last Admin: 01/25/20 09:07 Dose: 500 mg Documented by: Doxycycline Monohydrate (Doxycycline Monohydrate) 100 mg PO BID [facility] Last Admin: 01/25/20 09:06 Dose: 100 mg Documented by: Famotidine (Pepcid) 10 mg PO BID [facility] Last Admin: 01/24/20 09:20 Dose: Not Given Documented by: Furosemide (Lasix) 40 mg IVPUSH BIDDIURETIC [facility] Furosemide (Lasix) 60 mg IVPUSH BIDDIURETIC [facility] Last Admin: 01/24/20 14:50 Dose: Not Given Documented by: Sodium Chloride (Normal Saline) 250 mls @ 250 mls/hr IV ONETIME ONE Stop: 01/24/20 15:48 Last Infusion: 01/24/20 16:34 Dose: Infused Documented by: Sodium Chloride (Normal Saline) 250 mls @ 250 mls/hr IV ASDIRECTED [facility] Sodium Chloride (Normal Saline) 250 mls @ 250 mls/hr IV ONETIME ONE Stop: 01/24/20 17:45 Last Admin: 01/24/20 16:58 Dose: 250 mls/hr Documented by: Albumin Human (Flexbumin 25%) 12.5 gm in 50 mls @ 100 mls/hr IV ONETIME ONE Stop: 01/25/20 04:09 Last Admin: 01/25/20 04:44 Dose: Not Given Documented by: Albumin Human (Flexbumin 25%) 12.5 gm in 50 mls @ 100 mls/hr IV ONETIME ONE Stop: 01/25/20 04:22 Last Admin: 01/25/20 04:17 Dose: 100 mls/hr Documented by: Albumin Human (Flexbumin 25%) 12.5 gm in 50 mls @ 100 mls/hr IV ONETIME ONE Stop: 01/25/20 05:29 Last Admin: 01/25/20 05:42 Dose: 100 mls/hr Documented by: Sodium Chloride (Normal Saline) 250 mls @ 999 mls/hr IV STAT STA Stop: 01/25/20 08:19 Last Admin: 01/25/20 08:31 Dose: 999 mls/hr Documented by: Iopamidol (Isovue-300 (61%)) 100 ml IVPUSH ONETIME ONE Stop: 01/23/20 22:54 Last Admin: 01/23/20 23:02 Dose: 100 ml Documented by: Lisinopril (Prinivil) 10 mg PO DAILY [facility] Last Admin: 01/24/20 09:18 Dose: Not Given Documented by: Non-Formulary Medication (Clindamycin Hcl [Clindamycin Hcl]) 300 mg PO TID [facility] Non-Formulary Medication (Naftifine Hcl [Naftin]) 1 applic TOP DAILY [facility] Tamsulosin HCl (Flomax) 0.4 mg PO DAILY [facility] - Exam Quality Assessment: Reports: DVT Prophylaxis General: Reports: Alert, Oriented HEENT: Reports: Pupils Equal, Pupils Reactive, EOMI, Mucous Membr. Moist/[place]ck: Reports: Supple Lungs: Reports: Clear to Auscultation, Normal Respiratory Effort Cardiovascular: Reports: Regular Rate, Regular Rhythm GI/Abdominal Exam: Normal Bowel Sounds, Soft, Non-Tender, No Organomegaly, No Distention, No Abnormal Bruit, No Mass, Pelvis Stable (Male) Exam: No Hernia, Normal Inspection, Normal Prostate, Circumcised Rectal (Males) Exam: Normal Exam, Normal Rectal Tone, Prostate Normal Back Exam: Reports: Normal Inspection, Full Range of Motion Extremities: Normal Inspection, Normal Range of Motion, Non-Tender, No Pedal Edema, Normal Capillary Refill Skin: Reports: Warm, Dry, Intact Wound/Incisions: Reports: Healing Well Neurological: Reports: No New Focal Deficit Psy/Mental Status: Reports: Alert, Normal Affect, Normal Mood
[2020-01-25] MEDS: Acetaminophen/HYDROcodone 325-5 MG Tab PO PRN (10:42)
[2020-01-25] MEDS ORDERED: Piperacillin/Tazobactam 2.25 GM in Sodium Chloride 0.9% 50 ML IV SCH (12:00)
[2020-01-25] MEDS ORDERED: Lactulose Soln 10 GM/15 ML 30 ML UD Cup PO SCH (14:00)
== END 2020-01-25 11:45 | DRG 603 ==
LOC: DL.ED 21:36 → DL.MS 01-24 00:23 → OBSVTOIN 01-24 10:11
PROVIDERS: ADMIT Student in an Organized Health Care Education/Training Program; ATTEND Student in an Organized Health Care Education/Training Program
DX: L03.116 Cellulitis of left lower limb (principal); E87.1 Hypo-osmolality and hyponatremia; N17.9 Acute kidney failure, unspecified; I95.9 Hypotension, unspecified; J44.1 Chronic obstructive pulmonary disease with (acute) exacerbation; C41.9 Malignant neoplasm of bone and articular cartilage, unspecified; R19.7 Diarrhea, unspecified; L03.115 Cellulitis of right lower limb; R60.1 Generalized edema; J44.9 Chronic obstructive pulmonary disease, unspecified; D64.9 Anemia, unspecified; I87.2 Venous insufficiency (chronic) (peripheral); I73.9 Peripheral vascular disease, unspecified; E83.39 Other disorders of phosphorus metabolism; E66.9 Obesity, unspecified; G89.29 Other chronic pain; M54.9 Dorsalgia, unspecified; C61 Malignant neoplasm of prostate; Z79.01 Long term (current) use of anticoagulants; Z85.46 Personal history of malignant neoplasm of prostate; K59.00 Constipation, unspecified; R53.1 Weakness; Z98.49 Cataract extraction status, unspecified eye; Z98.890 Other specified postprocedural states; I10 Essential (primary) hypertension; H91.90 Unspecified hearing loss, unspecified ear; H54.7 Unspecified visual loss; Z68.34 Body mass index [BMI] 34.0-34.9, adult; Z86.73 Personal history of transient ischemic attack (TIA), and cerebral infarction without residual deficits; M81.0 Age-related osteoporosis without current pathological fracture; Z87.891 Personal history of nicotine dependence; Z79.82 Long term (current) use of aspirin; Z79.51 Long term (current) use of inhaled steroids; Z79.899 Other long term (current) drug therapy; Z20.828 Contact with and (suspected) exposure to other viral communicable diseases
CPT/HCPCS: 82962; 71045; 74177; 71260; 93970; 99285; 93005; 85025 ×2; 85610; 36415 ×2; 80053; 84100; 83735; 83880; 83605; 87040 ×2; A9270 ×14; J1940; J1644; Q9967; U0002; 51702; 80048; 81003; 87046; 94640; 97162-GP; 97166-GO; 99222; 99239; 99284; J7050; P9047